=== PATIENT | female | born 1965 | race Caucasian/White ===

== ENCOUNTER 2020-04-29 08:15 | Outpatient (REF) | payer OTHER, SELFPAY ==
[2020-04-29 10:15] LABS: MANUAL DIFF FLAG NO
[2020-04-29 10:42] LABS: Basophils Percent Auto 0.5 % (0-2); Eosinophils Absolute Auto 0.1 X10*3/uL (0.0-0.4); Eosinophils Percent Auto 0.7 % (0-4); Hematocrit 41.8 % (37-47); Hemoglobin 13.4 g/dl (12.0-16.0); Imm Gran Abs Auto 0.03 X10*3/uL (0.00-0.03); Imm Gran Pct Auto 0.3 % (0.0-0.4); Lymphocytes Absolute Auto 1.8 X10*3/uL (1.2-4.9); Lymphocytes Percent Auto 20.4 % (20-40); Mean Corpuscular HGB Conc 32.1 g/dl (31.0-35.0); Mean Corpuscular Hemoglobin 28.1 pg (27.0-33.0); Mean Corpuscular Volume 87.6 fL (80-98); Mean Platelet Volume 9.8 fL (9.4-12.3); Monocytes Absolute Auto 0.4 X10*3/uL (0.1-1.2); Monocytes Percent Auto 4.6 % (2-11); Neutrophils Absolute Auto 6.3 X10*3/uL (2.0-8.3); Neutrophils Percent Auto 73.5 % (45-73); Platelet Count 442 X10*3/uL (160-400); Red Blood Count 4.77 X10*6/uL (4.20-5.50); Red Cell Distribution Width 13.2 % (11.0-16.0); White Blood Count 8.6 X10*3/uL (4.8-10.8)
[2020-04-29 11:06] LABS: Alanine Aminotransferase 13 U/L (0-31); Albumin Level 4.1 g/dL (3.5-5.0); Alkaline Phosphatase 61 U/L (39-117); Aspartate Amino Transferase 19 U/L (5-31); Bilirubin Direct < 0.2 mg/dL (0.0-0.5); Bilirubin Total 0.4 mg/dL (0.0-1.0); Total Protein 6.8 g/dL (6.5-8.0)
[2020-09-07 11:33] LABS: HCV Log PCR <1.18 NOT DETECTED; HepC Viral Load <15 NOT DETECTED
== END 2020-04-29 08:16 | disposition home or self-care (01) ==
LOC: HO.10HDL 08:15
PROVIDERS: PCP Internal Medicine; Visit Provider Internal Medicine
DX: B18.2 Chronic viral hepatitis C (principal)
CPT/HCPCS: 36415; 80076; 85025; 87522

== ENCOUNTER 2020-05-11 07:44 | Outpatient (REF) | payer OTHER, SELFPAY | END 2020-05-11 07:45 | disposition home or self-care (01) | LOC: HO.LAB 07:44 | PROVIDERS: Visit Provider Internal Medicine | DX: Z20.828 Contact with and (suspected) exposure to other viral communicable diseases (principal) | CPT/HCPCS: C9803; U0003 ==

== ENCOUNTER 2021-03-02 06:45 | Outpatient (REF) | payer OTHER, SELFPAY ==
[2021-03-02 11:30] LABS: Blood Urea Nitrogen 9 mg/dL (9-16); Estimated Glomerular Filt Rate > 60
== END 2021-03-02 06:46 | disposition home or self-care (01) ==
LOC: HO.LNP 06:45
PROVIDERS: Visit Provider Internal Medicine
DX: Z01.812 Encounter for preprocedural laboratory examination (principal)
CPT/HCPCS: 82565; 84520

== ENCOUNTER 2021-06-09 08:00 | Outpatient (REF) | payer OTHER, SELFPAY ==
[2021-06-09 10:18] LABS: MANUAL DIFF FLAG NO
[2021-06-09 10:22] LABS: Basophils Percent Auto 0.5 % (0-2); Eosinophils Absolute Auto 0.1 X10*3/uL (0.0-0.4); Eosinophils Percent Auto 1.6 % (0-4); Hematocrit 41.8 % (37.0-47.0); Hemoglobin 13.4 g/dl (12.0-16.0); Imm Gran Abs Auto 0.02 X10*3/uL (0.00-0.03); Imm Gran Pct Auto 0.3 % (0.0-0.4); Lymphocytes Absolute Auto 1.6 X10*3/uL (1.2-4.9); Lymphocytes Percent Auto 19.9 % (20-40); Mean Corpuscular HGB Conc 32.1 g/dl (31.0-35.0); Mean Corpuscular Hemoglobin 28.6 pg (27.0-33.0); Mean Corpuscular Volume 89.3 fL (80.0-98.0); Mean Platelet Volume 9.6 fL (9.4-12.3); Monocytes Absolute Auto 0.5 X10*3/uL (0.1-1.2); Monocytes Percent Auto 6.2 % (2-11); Neutrophils Absolute Auto 5.7 x10*3/uL (2.0-8.3); Neutrophils Percent Auto 71.5 % (45-73); Platelet Count 424 X10*3/uL (160-400); Red Blood Count 4.68 X10*6/uL (4.20-5.50); Red Cell Distribution Width 13.2 % (11.0-16.0); White Blood Count 7.9 X10*3/uL (4.8-10.8)
[2021-06-09 10:57] LABS: Alanine Aminotransferase 16 U/L (0-31); Alkaline Phosphatase 60 U/L (39-117); Aspartate Amino Transferase 17 U/L (5-31); Bilirubin Direct < 0.2 mg/dL (0.0-0.5); Bilirubin Total 0.4 mg/dL (0.0-1.0); Total Protein 6.9 g/dL (6.5-8.0)
[2021-06-12 14:46] LABS: Alpha Fetoprotein 2.4 ng/mL
[2021-06-14 15:17] LABS: FIB-ALT 12 U/L (6-29); FIB-Alpha-2-Macroglobulin 208 mg/dL (106-279); FIB-Apolipoprotein A1 192 mg/dL (101-198); FIB-GGT 12 U/L (3-70); FIB-Haptoglobin 118 mg/dL (43-212); FIB-Total Bilirubin 0.3 mg/dL (0.2-1.2); Liver Fibrosis Score 0.07; Liver Fibrosis Stage F0; Nec Inflam Act Grade A0; Nec Inflam Act Score 0.03
[2021-06-15 20:32] LABS: HCV Log PCR <1.18 NOT DETECTED Log IU/mL (NOT DETECTED); HepC Viral Load <15 NOT DETECTED IU/mL (NOT DETECTED)
== END 2021-06-09 08:01 | disposition home or self-care (01) ==
LOC: HO.10HDL 08:00
PROVIDERS: Visit Provider Internal Medicine
DX: B18.2 Chronic viral hepatitis C (principal)
CPT/HCPCS: 36415; 80076; 81596; 82105; 85025; 85610; 87522

== ENCOUNTER 2021-07-11 11:17 | Outpatient (REF) | payer OTHER, SELFPAY ==
[2021-07-11 11:21] LABS: MANUAL DIFF FLAG NO
[2021-07-11 11:26] LABS: Basophils Percent Auto 0.5 % (0-2); Eosinophils Absolute Auto 0.3 X10*3/uL (0.0-0.4); Eosinophils Percent Auto 3.2 % (0-4); Hematocrit 42.9 % (37.0-47.0); Hemoglobin 13.9 g/dl (12.0-16.0); Imm Gran Abs Auto 0.01 X10*3/uL (0.00-0.03); Imm Gran Pct Auto 0.1 % (0.0-0.4); Lymphocytes Absolute Auto 2.4 X10*3/uL (1.2-4.9); Mean Corpuscular HGB Conc 32.4 g/dl (31.0-35.0); Mean Corpuscular Hemoglobin 28.3 pg (27.0-33.0); Mean Corpuscular Volume 87.2 fL (80.0-98.0); Mean Platelet Volume 9.9 fL (9.4-12.3); Monocytes Absolute Auto 0.6 X10*3/uL (0.1-1.2); Monocytes Percent Auto 6.8 % (2-11); Neutrophils Absolute Auto 4.8 x10*3/uL (2.0-8.3); Neutrophils Percent Auto 59.4 % (45-73); Platelet Count 460 X10*3/uL (160-400); Red Blood Count 4.92 X10*6/uL (4.20-5.50); Red Cell Distribution Width 13.2 % (11.0-16.0)
[2021-07-11 11:34] LABS: Appearance Urine HAZY; Color Urine YELLOW; Glucose Urine UA NEG (NEG); Leukocyte Esterase Urine NEG (NEG); Nitrite Urine NEG (NEG); Specific Gravity - Urine 1.025 (1.005-1.025); Urine Blood NEG (NEG); Urine Ketones NEG (NEG); Urine Protein NEG (NEG-TRACE)
[2021-07-11 12:14] LABS: Alanine Aminotransferase 16 U/L (0-31); Alkaline Phosphatase 59 U/L (39-117); Anion Gap 12 (12-20); Aspartate Amino Transferase 18 U/L (5-31); Bilirubin Total 0.3 mg/dL (0.0-1.0); Blood Urea Nitrogen 9 mg/dL (9-16); Calcium 9.4 mg/dL (8.4-10.2); Carbon Dioxide 25 mmol/L (22-29); Chloride 110 mmol/L (96-108); Cholesterol 242 mg/dL; Estimated Glomerular Filt Rate > 60; Glucose Fasting 85 mg/dL (60-99); HDL Cholesterol 69 mg/dL; LDL Cholesterol Calculated 156 mg/dl; Potassium 4.4 mmol/L (3.3-5.1); Sodium 143 mmol/L (135-145); Total Protein 6.9 g/dL (6.5-8.0); Triglycerides 86 mg/dL
[2021-07-11 12:23] LABS: Vitamin D 25-OH Total 25.9 ng/mL (>30)
== END 2021-07-11 11:18 | disposition home or self-care (01) ==
LOC: HO.LNP 11:17
PROVIDERS: Visit Provider Internal Medicine
DX: Z00.00 Encounter for general adult medical examination without abnormal findings (principal); D72.820 Lymphocytosis (symptomatic); E55.9 Vitamin D deficiency, unspecified
CPT/HCPCS: 80053; 80061; 81003; 82306; 85025

== ENCOUNTER 2022-02-08 13:18 | Outpatient (REF) | payer OTHER, SELFPAY ==
--- NOTE | ~2022-02-08 | MM_ITS ---
EXAMINATION: BONE DENSITOMETRY CLINICAL INDICATION: Menopause. COMPARISON: Baseline BD dated 07/04/2018. TECHNIQUE: Using a [employer] DXA System (software version: 13.1) manufactured by [employer], dual-energy x-ray absorptiometry was performed of the lumbar spine and left hip. The images are of good technical quality. Summary results are attached. FINDINGS: AP SPINE L1-L4: Current: BMD 1.434 g/cm2, Z-score 3.2, T-score 2.1, normal, 2.6% decrease from baseline (<5% change is not significant). Baseline: BMD 1.473 g/cm2. LEFT FEMUR, NECK: Current: BMD 0.963 g/cm2, Z-score 0.6, T-score -0.5, normal. Baseline: BMD 0.964 g/cm2. LEFT FEMUR, TOTAL: Current: BMD 1.076 g/cm2, Z-score 1.4, T-score 0.5, normal, 2.0% decrease from baseline (<5% change is not significant). Baseline: BMD 1.098 g/cm2. IDENTIFIED RISK FACTORS: Menopause, low calcium intake. HISTORY OF FRACTURE: None listed. MEDICATIONS: Calcium supplements or multivitamin, vitamin D, ERT/SERMS. MM/XR DEXA axial skeleton IMPRESSION: 1. DIAGNOSIS: Normal bone density based on the lowest T-score value of -0.5 in the femoral neck applying World Health Organization criteria. 2. 10-YEAR FRACTURE RISK PREDICTION, FRAX: According to the guidelines, FRAX calculation should only be performed on patients in the osteopenia bone density category. Therefore, FRAX was not performed on this patient. 3. Treatment Recommendations: NOF guidelines recommend consideration for treatment in postmenopausal women and men age 50 and older presenting with the following: -A hip or vertebral (clinical or morphometric) fracture. -T-score less than or equal to -2.5 at the femoral neck or spine after appropriate evaluation to exclude secondary causes. -Low bone mass at the hip or spine and a 10-year fracture probability by FRAX of greater than or equal to 3% for hip fracture or greater than or equal to 20% for major osteoporotic fracture based on the [place] adapted WHO algorithm. 4. Other Recommendations: All treatment decisions require clinical judgment and consideration of individual patient factors, including patient preferences, comorbidities, previous drug use, risk factors not captured in the FRAX model (e.g. frailty, falls, vitamin D deficiency, increased bone turnover, interval significant decline in bone density) and possible under or overestimation of fracture risk by FRAX. FUTURE SCAN RECOMMENDATION: People with diagnosed cases of osteoporosis or at high risk for fracture should have regular bone mineral density tests. For patients eligible for Medicare, routine testing is allowed once every 2 years. The testing frequency can be increased to one year for patients who have rapidly progressing disease, those who are receiving or discontinuing medical therapy to restore bone mass, or have additional risk factors.
--- NOTE | ~2022-02-08 | MM_ITS ---
EXAMINATION: MM SCREENING DIGITAL BREAST TOMOSYNTHESIS, BILATERAL CLINICAL INFORMATION: Screening. Asymptomatic. The lifetime risk of breast cancer based on the Tyrer-Cuzick Model is 11.5%. COMPARISON: Mammography: December 08, 2018 and studies dating back to March 08, 2009 TECHNIQUE: Digital breast tomosynthesis is performed in both the craniocaudal and mediolateral oblique views along with computer-aided detection (CAD). Synthesized 2D images are generated from the tomosynthesis. FINDINGS: There are scattered areas of fibroglandular density (ACR BI-RADS breast composition Category b). There are no significant masses, abnormal calcifications, or other abnormalities. MM/MM tomosynthesis screening BI IMPRESSION: There are no significant changes from prior study. ASSESSMENT: BI-RADS 1: Negative RECOMMENDATION: Routine annual mammography screening. This patient's information was entered into a reminder system with a target due date for their next mammogram.
== END 2022-02-08 13:19 | disposition home or self-care (01) ==
LOC: HO.MAMMO 13:18
PROVIDERS: Visit Provider Internal Medicine
DX: Z12.31 Encounter for screening mammogram for malignant neoplasm of breast (principal); Z13.820 Encounter for screening for osteoporosis; Z78.0 Asymptomatic menopausal state
CPT/HCPCS: 77063; 77067; 77080

== ENCOUNTER 2023-02-06 06:35 | Day surgery (SDC) | payer OTHER, SELFPAY ==
--- NOTE | 2022-11-02 13:02 | HO.ANESPROP2 ---
HPI - Anesthesia Eval Consult details Narrative: 57yo F for Colonoscopy hx polysubstance abuse PMFSH Past Medical History Medical History (Updated 04/20/22 @ 10:59 by Tucker Knowles, OPAL) Depression History of alcohol abuse History of hepatitis C History of substance abuse Surgical History Surgical History (Updated 04/20/22 @ 10:59 by Tucker Knowles, POAL) History of bilateral carpal tunnel release History of colonoscopy History of eye surgery History of plastic surgery Social History Social History (Updated 04/20/22 @ 11:00 by Tucker Knowles, OPAL) Patient Tobacco Use Status: Never used Tobacco Meds Allergies Allergy/AdvReac Type Severity Reaction Status Date / Time No Known Allergies Allergy Unverified 03/24/20 14:45 [No Known Allergies*] Home Medications Medication Instructions Recorded Confirmed Last Taken Type aspirin 81 mg tablet,delayed 81 mg PO DAILY 04/20/22 04/20/22 Unknown History release ibuprofen 04/20/22 04/20/22 Unknown History methadone 12 mg PO DAILY 04/20/22 04/20/22 Unknown History multivitamin 1 tab PO DAILY 04/20/22 04/20/22 Unknown History Exam Exam Date and Time: November 02, 2022 1302 Assessment and Plan Assessment Anesthesia Assessment: Chart Reviewed
--- OUTSIDE RECORDS SUMMARY | 2023-02-06 06:38 | XMS_ITS ---
Author Name Servando Wesley Address [address] [place], [place] [id number] Organization Servando Wesley MD Address [address], [place] [id number] Care Team Providers Care Primary Care Provider Name Role Phone Servando Wesley Unavailable [phone] Servando Wesley Unavailable [phone] Yash Echevarria Unavailable Unavailable Kaye Flores Unavailable Unavailable PROBLEMS Type Condition ICD9-CM Code QDM94-GF Code Onset Dates Condition Status SNOMED Code Problem Current smoker F17.200 Active 00213446 Problem Tubular adenoma D36.9 Active 30386424 7 Problem History of alcohol abuse Z87.898 Active Problem History of hepatitis C Z86.19 Active 54726276633358 Problem Arthritis of knee M17.10 Active 519136 002 Problem Kidney stone N20.0 Active 14312361 Problem History of opioid abuse Z87.898 Active 857303907695584 Problem Diverticulitis K57.92 Active 32163497 Problem Dysthymia F34.1 Active 04286764 Problem Sciatica of right side M54.31 Active 27981226 Problem Vitamin D deficiency E55.9 Active 74242793 Problem Leukocytosis, unspecified type D72.829 Active 441118532 Problem Lymphocytosis D72.820 Active 11434350 ALLERGIES No Known Allergies ENCOUNTERS Encounter Location Date Diagnosis Servando Wesley MD [address] [place] [id number] Apr, Servando Wesley MD [address] [place] [address] [id number] Jan, Current smoker F17.200 ; History of opioid abuse Z87.898 ; History of hepatitis C Z86.19 ; Encounter for screening for other viral diseases Z11.59 and Asymptomatic menopausal state Z78.0 Servando Wesley MD [address] [place] [address] [id number] 14 Sep, 2021 Current smoker F17.200 Servando Wesley MD [address] [place] [address] [id number] 06 Jul, 2021 Adult general medical exam Z00.00 ; Lymphocytosis D72.820 ; Vitamin D deficiency E55.9 ; Current smoker F17.200 ; Dysthymia F34.1 ; Tubular adenoma D36.9 ; Depression screening Z13.31 and Encounter for screening for other viral diseases Z11.59 Servando Wesley MD [address] [place] [address] [id number] Jul, Lymphocytosis D72.820 ; Vitamin D deficiency E55.9 ; Blood tests for routine general physical examination Z00.00 and Leukocytosis, unspecified type D72.829 Servando Wesley MD [address] [place] [address] [id number] Jun, Encounter for immunization Z23 Servando Wesley MD [address] [place] [address] [id number] 14 Apr, 2021 Servando Wesley MD [address] [place] [address] [id number] Apr, Servando Wesley MD [address] [place] [address] [id number] Feb, Blood tests prior to treatment or procedure Z01.812 Servando Wesley MD [address] [place] [address] [id number] Feb, Diverticulitis K57.92 and Kidney stone N20.0 Servando Wesley MD [address] [id number] Feb, Servando Wesley MD [address] [id number] Dec, Current smoker F17.200 and Encounter for screening for other viral diseases Z11.59 Servando Wesley MD [address] [id number] Jun, Annual physical exam Z00.00 ; Dysthymia F34.1 ; History of hepatitis C Z86.19 ; Current smoker F17.200 ; Tubular adenoma D36.9 ; Arthritis of knee M17.10 ; Lymphocytosis D72.820 ; Sciatica of right side M54.31 ; History of opioid abuse Z87.898 ; History of alcohol abuse Z87.898 ; Encounter for screening for other viral diseases Z11.59 ; Depression screening Z13.31 ; Leukocytosis, unspecified type D72.829 and Vitamin D deficiency E55.9 Servando Wesley MD [address] [place] [address] [id number] May, Blood tests for routine general physical examination Z00.00 ; History of hepatitis C Z86.19 ; Lymphocytosis D72.820 and Menopause Z78.0 Servando Wesley MD [address] [id number] May, Servando Wesley MD [address] [place] [address] [id number] Apr, Dysthymia F34.1 and Encounter for screening for other viral diseases Z11.59 Servando Wesley MD [address] [place] [address] [id number] Apr, Encounter for immunization Z23 ; Blood tests for routine general physical examination Z00.00 ; Current smoker F17.200 ; Dysthymia F34.1 and Lymphocytosis D72.820 Servando Wesley MD [address] [place] [address] [id number] Oct, Shortness of breath R06.02 and Encounter for screening for other viral diseases Z11.59 Servando Wesley MD [address] [place] [address] [id number] Sep, Servando Wesley MD [address] [id number] Aug, Lymphocytosis D72.820 Servando Wesley MD [address] [place] [address] [id number] Jul, Lymphocytosis D72.820 Servando Wesley MD [address] [place] [address] [id number] Jun, Servando Wesley MD [address] [place] [address] [id number] May, Annual physical exam Z00.00 ; Arthritis of knee M17.10 ; History of hepatitis C Z86.19 ; Current smoker F17.200 ; Depression screening Z13.31 and Tubular adenoma D36.9 Servando Wesley MD [address] [place] [address] [id number] May, Servando Wesley MD [address] [place] [address] [id number] May, Blood tests for routine general physical examination Z00.00 ; Current smoker F17.200 ; Dysthymia F34.1 ; Infectious disease exposure Z20.9 and Encounter for immunization Z23 Servando Wesley MD [address] [place] [address] [id number] Sep, Dysthymia F34.1 ; BMI 29.0-29.9,adult Z68.29 ; History of hepatitis C Z86.19 ; History of alcohol abuse Z87.898 ; History of opioid abuse Z87.898 ; Current smoker F17.200 and Encounter for immunization Z23 Servando Wesley MD [address] [place] [address] [id number] Jul, Dysthymia F34.1 Servando Wesley MD [address] [place] [address] [id number] Jun, Annual physical exam Z00.00 ; Current smoker F17.200 ; Osteoporosis screening Z13.820 ; Breast cancer screening Z12.31 ; Depression screening Z13.31 ; School physical exam Z02.0 ; History of alcohol abuse Z87.898 ; History of opioid abuse Z87.898 ; History of smoking 30 or more pack years Z87.891 ; Dysthymia F34.1 and Colon cancer screening Z12.11 Servando Wesley MD [address] [place] [address] [id number] Apr, Current smoker F17.200 ; BMI 28.0-28.9,adult Z68.28 ; Screening for colon cancer Z12.11 ; Encounter for immunization Z23 ; Blood tests for routine general physical examination Z00.00 and Osteoporosis screening Z13.820 IMMUNIZATIONS Vaccine Route Administration Date Status SARS-COV-2 Moderna Unknown Jun 23, 2021 Administe red Fluarix Quadrivalent IM Intramuscular Jun 09, 2021 Adm inistered SARS-COV-2 Moderna Unknown Aug 26, 2020 Administe red SARS-COV-2 Moderna Unknown Jul 29, 2020 Administe red Fluarix Quadrivalent IM Intramuscular Apr 08, 2020 Adm inistered Fluarix Quadrivalent IM Intramuscular May 19, 2019 Adm inistered PPSV23 (Pnemovax) IM Intramuscular September 23, 2018 Admi nistered Fluarix Quadrivalent IM Intramuscular Apr 22, 2018 Adm inistered SOCIAL HISTORY Qualifiers Date Current Smoker REASON FOR REFERRAL FUNCTIONAL STATUS PLAN OF CARE Activity Details VITAL SIGNS Height 61.5 in 2022-01-15 Height 61.5 in 2021-07-13 Height 61.5 in 2021-02-28 Height 61.5 in 2020-12-26 Height 61.5 in 2020-06-27 Height 61.5 in 2020-04-29 Height 61.5 in 2019-10-27 Height 61.5 in 2019-05-28 Height 61.5 in 2018-09-23 Height 61.5 in 2018-04-22 Weight 142 lbs 2022-01-15 Weight 139 lbs 2021-07-13 Weight 135 lbs 2021-02-28 Weight 135 lbs 2020-12-26 Weight 135 lbs 2020-06-27 Weight 138 lbs 2020-04-29 Weight 152 lbs 2019-10-27 Weight 152 lbs 2019-05-28 Weight 158 lbs 2018-09-23 Weight 153 lbs 2018-04-22 BMI 26.39 kg/m2 2022-01-15 BMI 25.84 kg/m2 2021-07-13 BMI 25.09 kg/m2 2021-02-28 BMI 25.09 kg/m2 2020-12-26 BMI 25.09 kg/m2 2020-06-27 BMI 25.65 kg/m2 2020-04-29 BMI 28.25 kg/m2 2019-10-27 BMI 28.25 kg/m2 2019-05-28 BMI 29.37 kg/m2 2018-09-23 BMI 28.44 kg/m2 2018-04-22 Temperature 98.3 degrees Fahrenheit Temperature 97.7 degrees Fahrenheit Temperature 97.4 degrees Fahrenheit Blood pressure systolic 130 mm Hg Blood pressure diastolic 58 mm Hg 2022-01 MEDICATIONS Medication Instructions Dosage Frequency Start Date End Date Duration Status Methadone HCl 5 MG/5ML Orally 27mg orally Once a day 24h Active Imvexxy 10 MCG Vaginal Two times a Week 1 _insert 30 day(s) Active PROCEDURES Procedure Date Ordered Result Body Site VENIPUNCT, ROUTINE* Sep 01, 2019 VENIPUNCT, ROUTINE* May 28, 2019 IMMUNIZATION ADMIN Jun 09, 2021 Fluarix Quadrivalent Apr 08, 2020 PNEUMOCOCCAL VACCINE September 23, 2018 VENIPUNCT, ROUTINE* May 19, 2019 -ELECTROCARDIOGRAM, COMPLETE Jun 20, 2018 Fluarix Quadrivalent May 19, 2019 Fluarix Quadrivalent Apr 22, 2018 IMMUNIZATION ADMIN May 19, 2019 Fluarix Quadrivalent Jun 09, 2021 VENIPUNCT, ROUTINE* Jul 11, 2021 IMMUNIZATION ADMIN Apr 22, 2018 VENIPUNCT, ROUTINE* Mar 02, 2021 IMMUNIZATION ADMIN September 23, 2018 VENIPUNCT, ROUTINE* Apr 22, 2018 VENIPUNCT, ROUTINE* May 27, 2020 IMMUNIZATION ADMIN Apr 08, 2020 RESULTS Name Result Date Reference Range MM tomosynthesis screening BI 2022-02-08 XR DEXA axial skeleton 2022-02-08 PAP SMEAR (THIN PREP) 2021-10-24 PAP SMEAR (THIN PREP) Complete Blood Count Auto Diff 2021-07-11 White Blood Count 8.0 4.8-10.8 Red Blood Count 4.92 4.20-5.50 Hemoglobin 13.9 12.0-16.0 Hematocrit 42.9 37.0-47.0 Mean Corpuscular Volume 87.2 80.0 -98.0 Mean Corpuscular Hemoglobin 28.3 27.0-33.0 Mean Corpuscular HGB Conc 32.4 31 .0-35.0 Red Cell Distribution Width 13.2 11.0-16.0 Platelet Count 460 160-400 Mean Platelet Volume 9.9 9.4-12. 3 Neutrophils Percent Auto 59.4 45- 73 Imm Gran Pct Auto 0.1 0.0-0.4 Lymphocytes Percent Auto 30.0 20- 40 Monocytes Percent Auto 6.8 2-11 Eosinophils Percent Auto 3.2 0-4 Basophils Percent Auto 0.5 0-2 NRBC Pct Auto 0.0 0.0-0.2 Neutrophils Absolute Auto 4.8 2. 0-8.3 Imm Gran Abs Auto 0.01 0.00-0.03 Lymphocytes Absolute Auto 2.4 1. 2-4.9 Monocytes Absolute Auto 0.6 0.1- 1.2 Eosinophils Absolute Auto 0.3 0. 0-0.4 Basophils Absolute Auto 0.0 0.0- 0.2 NRBC Abs Auto 0.000 0.0-0.012 Urinalysis 2021-07-11 Color Urine YELLOW Appearance Urine HAZY PH 6.0 5.0-8.0 Glucose Urine UA NEG NEG Urine Blood NEG NEG Specific [place] - Urine 1.025 1.0 05-1.025 Urine Protein NEG NEG-TRACE Urine Ketones NEG NEG Nitrite Urine NEG NEG Leukocyte Esterase Urine NEG NEG Comprehensive [place]. Panel Fast 2021-07-11 Sodium 143 135-145 Potassium 4.4 3.3-5.1 Chloride 110 96-108 Carbon Dioxide 25 22-29 Anion Gap 12 12-20 Blood Urea Nitrogen 9 9-16 Creatinine 0.66 0.5-1.4 Estimated Glomerular Filt Rate >60 Glucose Fasting 85 60-99 Calcium 9.4 8.4-10.2 Bilirubin Total 0.3 0.0-1.0 Aspartate Amino Transferase 18 5-31 Alanine Aminotransferase 16 0-3 1 Total Protein 6.9 6.5-8.0 Albumin Level 4.0 3.5-5.0 Alkaline Phosphatase 59 39-117 Lipid Panel 2021-07-11 Triglycerides 86 Cholesterol 242 LDL Cholesterol Calculated 156 HDL Cholesterol 69 Vitamin D 25-OH Total 2021-07-11 Vitamin D 25-OH Total 25.9 >30 Blood Urea Nitrogen 2021-03-02 Blood Urea Nitrogen 9 9-16 Creatinine 2021-03-02 Creatinine 0.69 0.5-1.4 Estimated Glomerular Filt Rate >60 LIPID PANEL 2020-05-27 CHOLESTEROL, TOTAL 247 <200 HDL CHOLESTEROL 73 >OR = 50 TRIGLYCERIDES 52 <150 LDL-CHOLESTEROL 160 CHOL/HDLC RATIO 3.4 <5.0 NON HDL CHOLESTEROL 174 <130 COMPREHENSIVE METABOLIC PANEL 2020-05-27 GLUCOSE 92 65-99 UREA NITROGEN (BUN) 11 7-25 CREATININE 0.67 0.50-1.05 eGFR NON-AFR. LATVIAN 98 >OR = 60 eGFR 114 >OR = 60 BUN/CREATININE RATIO NOT APPLICABLE 6-22 SODIUM 139 135-146 POTASSIUM 4.0 3.5-5.3 CHLORIDE 105 98-110 CARBON DIOXIDE 27 20-32 CALCIUM 9.6 8.6-10.4 PROTEIN, TOTAL 6.7 6.1-8.1 ALBUMIN 4.1 3.6-5.1 GLOBULIN 2.6 1.9-3.7 ALBUMIN/GLOBULIN RATIO 1.6 1.0-2 .5 BILIRUBIN, TOTAL 0.5 0.2-1.2 ALKALINE PHOSPHATASE 62 37-153 AST 14 10-35 ALT 10 6-29 CBC (INCLUDES DIFF/PLT) 2020-05-27 WHITE BLOOD CELL COUNT 11.7 3.8-1 0.8 RED BLOOD CELL COUNT 4.93 3.80-5. 10 HEMOGLOBIN 14.0 11.7-15.5 HEMATOCRIT 43.0 35.0-45.0 MCV 87.2 80.0-100.0 MCH 28.4 27.0-33.0 MCHC 32.6 32.0-36.0 RDW 12.8 11.0-15.0 PLATELET COUNT 472 140-400 MPV 9.6 7.5-12.5 ABSOLUTE NEUTROPHILS 9079 1500-78 00 ABSOLUTE LYMPHOCYTES 1849 850-390 0 ABSOLUTE MONOCYTES 608 200-950 ABSOLUTE EOSINOPHILS 105 15-500 ABSOLUTE BASOPHILS 59 0-200 NEUTROPHILS 77.6 LYMPHOCYTES 15.8 MONOCYTES 5.2 EOSINOPHILS 0.9 BASOPHILS 0.5 VITAMIN D, 25-HYDROXY, LC/MS/MS 2020-05-09 0 VITAMIN D,25-OH,TOTAL,IA 24 30- 100 URINALYSIS, COMPLETE 2020-05-27 COLOR YELLOW YELLOW APPEARANCE CLEAR CLEAR SPECIFIC GRAVITY 1.014 1.001-1.035 PH 5.5 5.0-8.0 GLUCOSE NEGATIVE NEGATIVE BILIRUBIN NEGATIVE NEGATIVE KETONES NEGATIVE NEGATIVE OCCULT BLOOD NEGATIVE NEGATIVE PROTEIN NEGATIVE NEGATIVE NITRITE NEGATIVE NEGATIVE LEUKOCYTE ESTERASE TRACE NEGATIVE WBC 0-5 < OR = 5 RBC NONE SEEN < OR = 2 SQUAMOUS EPITHELIAL CELLS 0-5 < OR = 5 BACTERIA NONE SEEN NONE SEEN HYALINE CAST NONE SEEN NONE SEEN Hep C Viral Load 2020-04-29 HepC Viral Load <15 NOT DETECTED HCV Log PCR <1.18 NOT DETECTED SARS COV2 RNA RT PCR 2020-03-02 SARS COV2 RNA RT PCR Not Detected Not Det ected CBC w DIFF 2019-09-01 WBC 5.9 4.8-10.8 ABSOLUTE NEUTROPHIL COUNT 3.1 2. 2-7.9 RBC 4.58 4.20-5.50 HEMOGLOBIN 13.5 12.0-16.0 HEMATOCRIT 40.3 37-47 MCV 88.0 80-98 MCH 29.4 27.0-33.0 MCHC 33.4 31.0-35.0 PLATELET COUNT 389 160-400 RDW 11.9 11.0-16.0 NEUTROPHILS 52.8 45-73 LYMPHOCYTES 36.1 20-40 MONOCYTES 7.4 2-11 EOSINOPHILS 2.4 0-4 BASOPHILS 1.2 0-2 BUN 2019-07-29 BUN 14 9-16 CREATININE 2019-07-29 CREATININE 0.72 0.5-1.4 ESTIMATED GFR >60 LIVER PROFILE 2019-07-29 PROTEIN, TOTAL 7.3 6.5-8.0 ALBUMIN 4.4 3.5-5.0 BILIRUBIN, TOTAL 0.7 0.0-1.0 BILIRUBIN, DIRECT 0.3 0.0-0.5 ALK. PHOS. 70 39-117 GOT 34 5-31 GPT 39 0-31 CBC w DIFF 2019-07-29 WBC 6.6 4.8-10.8 ABSOLUTE NEUTROPHIL COUNT 2.9 2. 2-7.9 RBC 4.77 4.20-5.50 HEMOGLOBIN 14.0 12.0-16.0 HEMATOCRIT 39.7 37-47 MCV 83.2 80-98 MCH 29.4 27.0-33.0 MCHC 35.3 31.0-35.0 PLATELET COUNT 457 160-400 RDW 11.9 11.0-16.0 NEUTROPHILS 44.3 45-73 LYMPHOCYTES 46.3 20-40 MONOCYTES 6.5 2-11 EOSINOPHILS 1.9 0-4 BASOPHILS 0.9 0-2 PROTHROMBIN TIME (PT, INR) 2019-07-29 INTERNATIONAL NORM. RATIO 1.0 SE E NOTE PROTHROMBIN TIME 11.7 10.8-13.0 HEPATITIS C VIRAL LOAD 2019-07-29 HEP C VIRAL LOAD [id number] () HCV LOG PCR 6.14 () MRI KNEE RT NO CONTRAST 2019-06-17 CHEST 2 VIEWS 2019-06-09 KNEE RIGHT RT 2019-06-09 XR KNEE BILATERAL STANDING 2019-06-09 URINALYSIS + MICROSCOPIC 2019-05-28 COLOR YELLOW APPEARANCE,(UA) CLEAR SPECIFIC GRAVITY <= 1.005 1.005-1.025 LEUKOCYTES 1+ NEG NITRITE NEG NEG PROTEIN,QUALITATIVE NEG NEG - TR RASHAAD PH 6.0 5.0-8.0 URINE BLOOD NEG NEG KETONES NEG NEG GLUCOSE NEG NEG MICROSCOPIC WBC 10-14 0-4 MICROSCOPIC RBC 0-2 0 EPITHELIAL CELLS 1+ BACTERIA TRACE HEPATITIS C VIRAL LOAD 2019-05-28 HEP C VIRAL LOAD [id number] () HCV LOG PCR 6.29 () LIPOPROTEIN FRACTIONATION (LIPID PANEL) 2 CHOLESTEROL 232 TRIGLYCERIDE 59 HDL 90 LDL CALCULATED 131 PROFILE, FASTING 2019-05-19 NA 139 135-145 K 4.3 3.3-5.1 CL 108 96-108 CO2 23 22-29 ANION GAP 12 12-20 FASTING BLOOD SUGAR 103 60-99 BUN 17 9-16 CREATININE 0.72 0.5-1.4 ESTIMATED GFR >60 PROTEIN, TOTAL 6.8 6.5-8.0 ALBUMIN 4.0 3.5-5.0 BILIRUBIN, TOTAL 0.5 0.0-1.0 CALCIUM 9.3 8.4-10.2 ALK. PHOS. 67 39-117 GOT 31 5-31 GPT 39 0-31 CBC w DIFF 2019-05-19 WBC 5.6 4.8-10.8 ABSOLUTE NEUTROPHIL COUNT 3.1 2. 2-7.9 RBC 4.82 4.20-5.50 HEMOGLOBIN 13.8 12.0-16.0 HEMATOCRIT 41.8 37-47 MCV 86.8 80-98 MCH 28.7 27.0-33.0 MCHC 33.1 31.0-35.0 PLATELET COUNT 423 160-400 RDW 11.9 11.0-16.0 NEUTROPHILS 55.2 45-73 LYMPHOCYTES 35.7 20-40 MONOCYTES 6.0 2-11 EOSINOPHILS 2.4 0-4 BASOPHILS 0.7 0-2 HEPATITIS C ANTIBODY 2019-05-19 HEPATITIS C ANTIBODY REACTIVE NONREAC TIVE cologuard GI BIOPSY 2019-04-27 G.I. BIOPSY MAMMOGRAM DIGITAL BILATERAL SCREEN 12-09 HCV RNA NS5A DRUG RESISTANCE 2018-09-23 HCV NS5a SUBTYPE 1a () DACLATASVIR RESISTANCE NOT PREDICTED () LEDIPASVIR RESISTANCE NOT PREDICTED () OMBITASVIR RESISTANCE NOT PREDICTED () ELBASVIR RESISTANCE NOT PREDICTED () US ABD 2018-09-10 Bone Density URINALYSIS + MICROSCOPIC 2018-04-22 COLOR YELLOW APPEARANCE,(UA) CLEAR SPECIFIC GRAVITY 1.015 1.005-1.025 LEUKOCYTES TRACE NEG NITRITE NEG NEG PROTEIN,QUALITATIVE NEG NEG - TR RASHAAD PH 6.0 5.0-8.0 URINE BLOOD NEG NEG KETONES NEG NEG GLUCOSE NEG NEG MICROSCOPIC WBC 1-4 0-4 MICROSCOPIC RBC 0-2 0 EPITHELIAL CELLS 2+ BACTERIA TRACE LIPOPROTEIN FRACTIONATION (LIPID PANEL) 2 CHOLESTEROL 237 TRIGLYCERIDE 51 HDL 83 LDL CALCULATED 144 PROFILE, FASTING 2018-04-22 NA 138 135-145 K 4.7 3.3-5.1 CL 104 96-108 CO2 29 22-29 ANION GAP 10 12-20 FASTING BLOOD SUGAR 92 60-99 BUN 19 9-16 CREATININE 0.69 0.5-1.4 ESTIMATED GFR >60 PROTEIN, TOTAL 6.8 6.5-8.0 ALBUMIN 4.1 3.5-5.0 BILIRUBIN, TOTAL 0.5 0.0-1.0 CALCIUM 9.5 8.4-10.2 ALK. PHOS. 65 39-117 GOT 26 5-31 GPT 35 0-31 CBC w DIFF 2018-04-22 WBC 6.4 4.8-10.8 ABSOLUTE NEUTROPHIL COUNT 2.9 2. 2-7.9 RBC 4.48 4.20-5.50 HEMOGLOBIN 13.1 12.0-16.0 HEMATOCRIT 39.2 37-47 MCV 87.6 80-98 MCH 29.2 27.0-33.0 MCHC 33.4 31.0-35.0 PLATELET COUNT 396 160-400 RDW 11.8 11.0-16.0 NEUTROPHILS 46.3 45-73 LYMPHOCYTES 42.1 20-40 MONOCYTES 8.2 2-11 EOSINOPHILS 2.2 0-4 BASOPHILS 1.3 0-2 BONE DENSITY DEXA 2018-07-04 REASON FOR VISIT ANNUAL EXAM, Covid #1 #2 #3 documented, FASTING LABS, FYI colonoscopy, 6 MO F/U, Covid #1 #2 #3 andflu vac documented, Due for Bone Density needs order, Due for Mammo needs order, No Covid symptoms,med , ANNUAL EXAM, Covid #1 #2 #3 documented Flu vac documented, No Covid symptoms, has [employer], looking for patch to quit smoking, C/O lower right quad burning x 1 month, FASTING LABS, flu injection, CTABD PELVIS, BUN Creatinine, abd pain x 2 days llq, No Covid symptoms Covid #1 and #2 documented, Video [phone], patient rescheduled appt, 6 MO F/U SMOKING, Do Covid Screen No Covid symptoms Covid #1 and #2 documented, CBC W/ DIFF, ANNUAL EXAM, REVIEW LABS, Do Covid Screen-no covid screening no covid symptoms, Depression screening; smoking and alcohol status, Communication Screening, CK if plans to have T-DAP-will go to pharmacy, PAP-will make appt with [employer]KE OPERATOR, video [phone], FASTING LABS, Letter request, TALK ABOUT MEDS bupropion stopped it 2 weeks, Do COVID Screening, CK if plans tohave T-DAP, video [phone], FLU, 6 MO F/U for Hepatitis C, Do COVID Screening, SOB x 1 day no temp no cough no sore throat a little fatigue, Facetime [phone], Bloodwork, Repeat CBC, Needs to repeat cbc, RESULTS HEP C VIRAL LOAD, Annual exam and review labs - had hep c viral load on Saturday, Depresssion screening, Ekg sign form PT DECLINED WILL DO NEXT YEAR, Get UA - unable to void at lab visit, CK if plans to have T-DAP PT WILL TRY, Due for Pap PT ANNUAL EXAM LAST YEAR IN [place] , Does pt plan on getting Chest Xr Done - ordered because she's a smoker, WILL CALL WITH NAME , Hep C viral load, Annual fasting labs, do Hep C - exposure to infectious disease, give flu shot, 3 mo f/u for Dysthymia, BMI reporting, Give pneumo, needs chest xray order from last visit, Wellbutrin 150, Annual Exam and review labs from April, Depression screening; smoking and alcohol status, EKG - sign form, Discuss Smoking Cessation, Due for T-Dap at Pharmacy PT AWARE, Due for bone density, mammo, pap and colonoscopy - Does pt have a toll transmission worker? PT DOES NOT, WILL GET ONE AT [facility], PT IS ALREADY SCHED WITH DR ECHEVARRIA ON 08/28/18 @ 11:00AM, Needs refill on Wellbutrin, Had Mammo done in October at [facility] at [facility], NPT, Give flu shot, Ck if had colonoscopy, mammo, bone density and pap (does she have a toll transmission worker), BMI reporting print out given to the patient, needs appt Colonoscopy and Bone Density order, mammo [facility], Pap will make own appt,, labs drawn Insurance Providers Health Insurance Type Health Plan Insurance Address Health Plan Insurance Phone Health Plan Insurance Name Health Plan Coverage Dates Member ID Patient Relationship to Subscriber Patient Address Patient Phone Patient Name Patient Date of Subscriber ID Subscriber Name Subscriber Date of Group No [facility] [address] [facility] [address] [facility] [id number] [facility] self Silva fink [id number] [place] [address] [address] [facility] [phone] [id number] [employer] self Silva fink [id number] [employer] [place] [address] [place] [address] [employer] [place] self Silva fink [id number]
--- OUTSIDE RECORDS SUMMARY | 2023-02-06 06:38 | XMS_ITS ---
Author Name Yash Wilson Address [address] [place] [address] Organization [facility] Address [address] [place] [address] Care Team Providers Care Vehicle Return Associate Name Role Phone Yash Wilson Unavailable [phone] PROBLEMS Type Condition ICD9-CM Code XKC89-EP Code Onset Dates Condition Status SNOMED Code Problem History of hepatitis C Z86.19 Active 08414240619351 Problem Personal history of colonic polyps Z86.010 Active Problem Encounter for screening for malignant neoplasm of colon Z12.11 Active 561692442 Problem Chronic hepatitis C without hepatic coma B18.2 Active 470263594 Problem History of adenomatous polyp of colon Z86.010 Active 847531678 Problem Chronic hepatitis K73.9 Active [id number] ALLERGIES No Known Allergies ENCOUNTERS Encounter Location Date Diagnosis [facility] [address] [place] [id number] Feb, [facility] [address] [place] [phone] Jan, [facility] [address] [place] [phone] Jan, [facility] [address] [place] [phone] November, [facility] [address] [place] [phone] Sep, [facility] [address] [place] [phone] 23 Apr, 2022 [facility] [address] [place] 17 Apr, 2022 [facility] [address] [place] 14 Apr, 2022 [facility] [address] [place] [address] 15 Dec, 2021 Encounter for screening for malignant neoplasm of colon Z12.11 ; History of hepatitis C Z86.19 and Personal history of colonic polyps Z86.010 [facility] [address] [place] Jun, [facility] [address] [facility] [place] Jun, Chronic hepatitis C without hepatic coma B18.2 ; History of adenomatous polyp of colon Z86.010 and Encounter for screening for malignant neoplasm of colon Z12.11 [facility] [address] [facility] [place] [address] Feb, [facility] [address] [facility] [place] Dec, [facility] [address] [facility] [place] Oct, [facility] [address] [facility] [place] Apr, Chronic hepatitis C without hepatic coma B18.2 [facility] [address] [place] [address] [place] November, Chronic hepatitis C without hepatic coma B18.2 [facility] [address] [facility] [place] [address] Sep, Chronic hepatitis C without hepatic coma B18.2 [facility] [address] [facility] [place] Aug, [facility] [address] [facility] [place] Jul, Chronic hepatitis C without hepatic coma B18.2 [facility] [address] [facility] [place] [address] Jul, [facility] [address] [place] [address] Jul, Chronic hepatitis C without hepatic coma B18.2 and History of adenomatous polyp of colon Z86.010 [facility] [address] [place] [address] Apr, [facility] [address] [facility] [place] [phone] Apr, Colon cancer screening Z12.11 ; Colon polyp K63.5 ; Diverticulosis of colon K57.30 and Internal hemorrhoid K64.8 [facility] [address] [facility] [place] [address] Apr, [facility] [address] [facility] [place] [address] Dec, [facility] [address] [facility] [place] [address] Dec, [facility] [address] [facility] [place] [address] Dec, [facility] [address] [facility] [place] [address] Aug, [facility] [address] [place] [phone] 14 Aug, 2018 Chronic hepatitis C without hepatic coma B18.2 and Encounter for screening for malignant neoplasm of colon Z12.11 IMMUNIZATIONS Vaccine Route Administration Date Status Influenza Unknown May 30, 2021 Administered Influenza Unknown Apr 13, 2020 Administered Influenza Unknown Apr 01, 2019 Administered Influenza Unknown Jun 07, 2018 Administered SOCIAL HISTORY Qualifiers Date Never Smoker REASON FOR REFERRAL FUNCTIONAL STATUS PLAN OF CARE Activity Details VITAL SIGNS Weight 140 lbs 2021-12-20 Weight 141 lbs 2021-06-07 Weight 139 lbs 2020-04-27 Weight 152 lbs 2019-07-29 Weight 155 lbs 2018-08-21 Height 61 in 2021-12-20 Height 61 in 2021-06-07 Height 61 in 2020-04-27 Height 61 in 2019-07-29 Height 61 in 2018-08-21 BMI 26.45 kg/m2 2021-12-20 BMI 26.64 kg/m2 2021-06-07 BMI 26.26 kg/m2 2020-04-27 BMI 28.72 kg/m2 2019-07-29 BMI 29.28 kg/m2 2018-08-21 Heart Rate 68 /min 2018-08-21 Temperature 96.9 degrees Fahrenheit Temperature 96.9 degrees Fahrenheit Temperature 97.1 degrees Fahrenheit Blood pressure systolic 000 mm Hg Blood pressure diastolic 00 mm Hg 2021-12 MEDICATIONS Medication Instructions Dosage Frequency Start Date End Date Duration Status Ibuprofen Active Aspir-81 Active Methadone HCl 10 MG Orally Once a day 12 mg 24h Active Multivitamin Adults - Orally once a day as directed 24h Active PROCEDURES Procedure Date Ordered Result Body Site COLORECTAL CA SCREEN DOC REV Apr 27, 2020 BP SCR PRFRM RCMDD DEFIND SCR INTVL Apr 27, 2020 COLORECTAL CA SCREEN DOC REV Aug 21, 2018 COLORECTAL CA SCREEN DOC REV Jul 29, 2019 TOBACCO NON-USER December 20, 2021 COLORECTAL CA SCREEN DOC REV December 20, 2021 TOBACCO NON-USER Jun 07, 2021 COLORECTAL CA SCREEN DOC REV Jun 07, 2021 DOC MEDS VERIFIED W/PT OR RE Jul 29, 2019 BP SCR PRFRM RCMDD DEFIND SCR INTVL Jul 29, 2019 LESION REMOVAL COLONOSCOPY Apr 27, 2019 DOC MEDS VERIFIED W/PT OR RE Aug 21, 2018 BP SCR PRFRM RCMDD DEFIND SCR INTVL Aug 21, 2018 DOC MEDS VERIFIED W/PT OR RE December 20, 2021 BP SCR NOT PRFRM REC REASON NOS December 20, 2021 DOC MEDS VERIFIED W/PT OR RE Jun 07, 2021 BP SCR NOT PRFRM REC REASON NOS Jun 07, 2021 TOBACCO NON-USER Jul 29, 2019 TOBACCO NON-USER Aug 21, 2018 PT TOBACCO SCREEN RCVD TLK Apr 27, 2020 SUPPLIES, CLINICAL STAFF JORDIN Ulloa DURING INFECTIOUS DISEASE PANDEMIC Apr 27, 2020 DOC MEDS VERIFIED W/PT OR RE Apr 27, 2020 Separate E/M Apr 27, 2020 RESULTS Name Result Date Reference Range Complete Blood Count Auto Diff 2021-06-09 White Blood Count 7.9 4.8-10.8 Red Blood Count 4.68 4.20-5.50 Hemoglobin 13.4 12.0-16.0 Hematocrit 41.8 37.0-47.0 Mean Corpuscular Volume 89.3 80.0 -98.0 Mean Corpuscular Hemoglobin 28.6 27.0-33.0 Mean Corpuscular HGB Conc 32.1 31 .0-35.0 Red Cell Distribution Width 13.2 11.0-16.0 Platelet Count 424 160-400 Mean Platelet Volume 9.6 9.4-12. 3 Neutrophils Percent Auto 71.5 45- 73 Imm Gran Pct Auto 0.3 0.0-0.4 Lymphocytes Percent Auto 19.9 20- 40 Monocytes Percent Auto 6.2 2-11 Eosinophils Percent Auto 1.6 0-4 Basophils Percent Auto 0.5 0-2 NRBC Pct Auto 0.0 0.0-0.2 Neutrophils Absolute Auto 5.7 2. 0-8.3 Imm Gran Abs Auto 0.02 0.00-0.03 Lymphocytes Absolute Auto 1.6 1. 2-4.9 Monocytes Absolute Auto 0.5 0.1- 1.2 Eosinophils Absolute Auto 0.1 0. 0-0.4 Basophils Absolute Auto 0.0 0.0- 0.2 NRBC Abs Auto 0.000 0.0-0.012 Prothrombin Time INR 2021-06-09 Prothrombin Time 11.0 9.9-13.0 INTERNATIONAL NORM RATIO 1.0 0.9 -1.1 Liver Panel 2021-06-09 Bilirubin Total 0.4 0.0-1.0 Bilirubin Direct < 0.2 0.0-0.5 Aspartate Amino Transferase 17 5-31 Alanine Aminotransferase 16 0-3 1 Total Protein 6.9 6.5-8.0 Albumin Level 4.0 3.5-5.0 Alkaline Phosphatase 60 39-117 Alpha Fetoprotein 2021-06-09 Alpha Fetoprotein 2.4 Liver Fibrosis Pnl 2021-06-09 Liver Fibrosis Score 0.07 Liver Fibrosis Stage F0 Liver Fibrosis Interpretation SEE NOTE Nec Inflam Act Score 0.03 Nec Inflam Act Grade A0 Nec Inflam Act Interpretation SEE NOTE RXT-Orydc-7-Macroglobulin 208 10 6-279 FIB-Haptoglobin 118 43-212 FIB-Apolipoprotein A1 192 101-19 8 FIB-Total Bilirubin 0.3 0.2-1.2 FIB-GGT 12 3-70 FIB-ALT 12 6-29 Reference ID [id number] Footnote SEE NOTE Hep C Viral Load 2021-06-09 HepC Viral Load <15 NOT DETECTED NOT DETE CTED HCV Log PCR <1.18 NOT DETECTED NOT DETEC NIKKI Hep C Viral Load 2020-04-29 HepC Viral Load TNP NOT DETECTED HCV Log PCR TNP NOT DETECTED Hep C Viral Load 2020-04-29 HepC Viral Load <15 NOT DETECTED HCV Log PCR <1.18 NOT DETECTED LIVER PROFILE 2019-11-25 PROTEIN, TOTAL 6.4 6.5-8.0 ALBUMIN 3.9 3.5-5.0 BILIRUBIN, TOTAL 0.4 0.0-1.0 BILIRUBIN, DIRECT 0.2 0.0-0.5 ALK. PHOS. 55 39-117 GOT 19 5-31 GPT 23 0-31 CBC w DIFF 2019-11-25 WBC 5.8 4.8-10.8 ABSOLUTE NEUTROPHIL COUNT 3.2 2. 2-7.9 RBC 4.37 4.20-5.50 HEMOGLOBIN 13.1 12.0-16.0 HEMATOCRIT 37.6 37-47 MCV 86.0 80-98 MCH 29.9 27.0-33.0 MCHC 34.8 31.0-35.0 PLATELET COUNT 353 160-400 RDW 11.4 11.0-16.0 NEUTROPHILS 55.6 45-73 LYMPHOCYTES 36.0 20-40 MONOCYTES 5.7 2-11 EOSINOPHILS 1.8 0-4 BASOPHILS 0.9 0-2 BUN 2019-07-29 BUN 14 9-16 CREATININE [...] VIRAL LOAD 2019-07-29 HEP C VIRAL LOAD [id number] () HCV LOG PCR 6.14 () GI BIOPSY 2019-04-27 G.I. BIOPSY HCV RNA NS5A DRUG RESISTANCE 2018-09-23 HCV NS5a SUBTYPE 1a () DACLATASVIR RESISTANCE NOT PREDICTED () LEDIPASVIR RESISTANCE NOT PREDICTED () OMBITASVIR RESISTANCE NOT PREDICTED () ELBASVIR RESISTANCE NOT PREDICTED () HEPATITIS B CORE ANTIBODY 2018-08-21 HEPATITIS B CORE ANTIBODY REACTIVE NO NREACTIVE HCV RNA QN PROG TO GENOTYPE 2018-08-21 HCV RNA PCR QN [id number] () HCV RNA PCR QN 6.47 () HCV GENOTYPING SEE NOTE () HCV GENOTYPE LIPA 1a () HCV RNA NS5A DRUG RESISTANCE 2018-08-21 HCV NS5a SUBTYPE Test not performed () DACLATASVIR RESISTANCE Test not performed () LEDIPASVIR RESISTANCE Test not performed () OMBITASVIR RESISTANCE Test not performed () ELBASVIR RESISTANCE Test not performed () CHEM 7 PROFILE 2018-08-21 NA 139 135-145 K 4.4 3.3-5.1 CL 105 96-108 CO2 26 22-29 ANION GAP 12 12-20 GLUCOSE,RANDOM 87 60-115 BUN 17 9-16 CREATININE 0.72 0.5-1.4 ESTIMATED GFR >60 LIVER PROFILE 2018-08-21 PROTEIN, TOTAL 7.1 6.5-8.0 ALBUMIN 4.2 3.5-5.0 BILIRUBIN, TOTAL 0.5 0.0-1.0 BILIRUBIN, DIRECT 0.2 0.0-0.5 ALK. PHOS. 71 39-117 GOT 28 5-31 GPT 34 0-31 CBC w DIFF 2018-08-21 WBC 7.0 4.8-10.8 ABSOLUTE NEUTROPHIL COUNT 4.0 2. 2-7.9 RBC 4.74 4.20-5.50 HEMOGLOBIN 13.8 12.0-16.0 HEMATOCRIT 40.5 37-47 MCV 85.6 80-98 MCH 29.1 27.0-33.0 MCHC 34.0 31.0-35.0 PLATELET COUNT 371 160-400 RDW 11.8 11.0-16.0 NEUTROPHILS 57.3 45-73 LYMPHOCYTES 34.5 20-40 MONOCYTES 5.5 2-11 EOSINOPHILS 1.7 0-4 BASOPHILS 1.0 0-2 PROTHROMBIN TIME (PT, INR) 2018-08-21 INTERNATIONAL NORM. RATIO 0.9 SE E NOTE PROTHROMBIN TIME 10.7 10.8-13.0 HEPATITIS B PROFILE 2018-08-21 HEPATITIS B SURFACE ANTIGEN NEGATIVE NEGATIVE HEPATITIS B SURFACE ANTIBODY REACTIVE NONREACTIVE HEPATITIS B INTERPRETATION SEE NOTE HIV AG/AB 2018-08-21 HIV AG/AB NONREACTIVE NR ALPHA-FETOPROTEIN,TUMOR MARKER 2018-08-21 ALPHA-FETOPROTEIN,TUMOR MARKER 2.8 <6.1 HEPATITIS A ANTIBODY-IGG 2018-08-21 ANTI-HAV IGG REACTIVE NONREACTIVE HCV LIVER FIBROSIS, FIBRO TEST 2018-08-21 FIBROSIS SCORE 0.09 () FIBROSIS STAGE F0 () FIBROSIS INTERPRETATION SEE NOTE () NECROINFLAMMAT ACTIVITY SCORE 0.10 () NECROINFLAMMAT ACTIVITY GRADE A0 () NECROINFLAMMAT ACTIVITY INTERP SEE NOTE () AGBRM-4-RYSUBFEHVSJV 192 106-279 HAPTOGLOBIN 73 43-212 APOLIPOPROTEIN A1 229 101-198 TOTAL BILIRUBIN 0.4 0.2-1.2 GGT 27 3-70 ALT 29 6-29 REFERENCE ID [id number] () FOOTNOTE SEE NOTE () US ABD 2018-09-10 REASON FOR VISIT screening colonoscopy, hx of polyps, needs letter faxed for methadone, screening history of polyps,PATIENT CANCELLED PROCEDURE, screening colon, note, Patient presents today for chronic hepatitis c,schedule abd us , Patient presents today for hep c, Patient presents today for HEP C, PATIENT PRESENTS TODAY FOR HEP C, R/S todays appt /headcold, Hep C, r/s ov, patient presents today for HEP C, requ esting viral load labs , FINISHED LAST PILL FOR HEPATITIS, Ledipasvir/Sofosbuvir, Harvoni, Patient presents today for follow up office visit for a colon polyp, please schedule f/u in July 2019, Needs a note for , 4 month f/u, Wants to R/S , screening, [facility] Insurance terminated 12-05-18, Cancellingcolon/MAC, Not enough blood drawn, PATIENT PRESENTS TODAY FOR SCREENING COLON Insurance Providers Health Insurance Type Health Plan Insurance Address Health Plan Insurance Phone Health Plan Insurance Name Health Plan Coverage Dates Member ID Patient Relationship to Subscriber Patient Address Patient Phone Patient Name Patient Date of Subscriber ID Subscriber Name Subscriber Date of Group No [place] [address] [facility] [address] [employer] [place] self ALESSANDRA AUDELIA Ulloa [id number] [facility] Health Plan [address] [address] [facility] [id number] [facility] self ALESSANDRA Ulloa [id number] [facility] [address] [facility] [address] [facility] self ALESSANDRA AUDELIA Ulloa [id number] [facility] [address] [facility] [address] [facility] self ALESSANDRA AUDELIA Ulloa [id number] [facility] [address] [address] [facility] [address] [facility] [employer] self ALESSANDRA Ulloa [id number] [employer] [address] [facility] [address] [employer] self ALESSANDRA Ulloa [id number] [employer] [place] [address] [address] [facility] [id number] [employer] [place] self ALESSANDRA Ulloa [id number]
--- OUTSIDE RECORDS SUMMARY | 2023-02-06 06:38 | XMS_ITS | Patient Health Record ---
Author Name Unknown Organization [facility] Address Placement of archive d users [place], [place] [id number] Care Team Providers Care Reproduction Production Manager Name Role Phone Salina Alfred Unavailable Franky Hernandez Unavailable [phone] Robyn Manuel Unavailable PROBLEMS Type Condition ICD9-CM Code [id number] Code Onset Dates Condition Status W/U Status Risk SNOMED Code Notes Problem MENTAL/BEHAV IOR PROB NOS V40.9 confirmed 047232420 Problem Overweight BMI 25-29.9 278.00 confirmed [id number] Problem Depressive Disorder NOS 311 confirmed [id number] Problem Tobacco use disorder 305.1 confirmed [id number] Problem Alcohol dependence 303.90 confirmed [id number] Problem Opioid dependence 304.00 confirmed [id number] Problem Genital herpes simplex NOS 054.10 confirmed [id number] ALLERGIES No Known Allergies ENCOUNTERS from 1965 to 2023-02-06 Encounter Location Date Provider Diagnosis [address] [id number] Sep, Salina Alfred Pain in limb 729.5 ; Tobacco use disorder 305.1 ; Opioid dependence 304.00 ; Alcohol dependence 303.90 and Depressive Disorder NOS [address] [id number] May, Franky Hernandez Vaginitis 616.10 ; Influenza Vaccine V04.81 ; Alcohol dependence 303.90 ; Tdap V06.8 and Lab results reviewed V65.40 [facility] [address] [place] [id number] May, Franky Hernandez Vaginitis NOS 616.[address] [id number] May, 2013 Robyn Manuel Tobacco use disorder 305.[address] [id number] May, Franky Hernandez ROUTINE FUNERAL COUNSELOR EXAMINATION V72.31 ; MENTAL/BEHAVIOR PROB NOS V40.9 ; Genital herpes simplex NOS 054.10 ; SCREEN MAL NEOP-CERVIX V76.2 ; SCRN MAL REYNALDO BREAST NOS V76.10 ; SCREEN FOR INFEC DIS NOS V75.9 ; Insomnia 780.52 ; Anxiety disorder NOS 300.00 and Tobacco use disorder 305.[address] [id number] Oct, Salina ZZKennedy MENTAL/BEHAVIOR PROB NOS V40.9 ; Opioid dependence 304.00 ; Alcohol dependence 303.90 ; Tobacco use disorder 305.1 ; Genital herpes simplex NOS 054.10 and Dental abscess 522.[address] [id number] Aug, Salina ZZKennedy MENTAL/BEHAVIOR PROB NOS V40.9 ; Leukorrhea, not specified as infective 623.5 and Tobacco use disorder 305.[address] [id number] Jun, Salina ZZKennedy [address] [id number] Jun, Salina ZZKennedy MENTAL/BEHAVIOR PROB NOS V40.9 ; Tobacco use disorder 305.1 ; Opioid dependence 304.00 ; Alcohol dependence 303.90 and Carpal tunnel syndrome 354.[address] [id number] May, Salina ZZKennedy MENTAL/BEHAVIOR PROB NOS V40.9 ; Influenza Vaccine V04.81 and Tobacco use disorder 305.1 IMMUNIZATIONS Vaccine Route Administration Date Status Tdap Unknown Jun 02, 2013 Administered Influenza Unknown Jun 02, 2013 Administered Pneumococcal has never recei maycol will consider Unknown May 30, 2012 Administered Influenza Unknown May 30, 2012 Administered Td Unknown May 30, 2012 Administered PPD offered and declined Unknown May 30, 2012 Adm inistered SOCIAL HISTORY Tobacco Use: Social History Observation Description Date Details (start date - stop date) Current Smoker Sex Assigned At : Social History Observation Description Sex Assigned At Unknown Tobacco Use Assessment MU Question Answer Notes What is your current smoking status? current smo ker Patient counseled on the chuck smalls of tobacco use and advised to quit: 10/01/2012 Are you interested in quitting? Ready to quit How soon after you wake up do you smoke your fir st cigarette? within 5 min How many cigarettes a day do you smoke? 11-20 How often do you smoke? every day REASON FOR REFERRAL No Information VITAL SIGNS from 1965 to 2023-02-06 Height 62.125 in Sep, Weight 160 lbs Sep, BMI 29.14 kg/m2 Sep, Temperature 97.5 degrees Fahrenheit May, Blood pressure systolic 110 Sep, Blood pressure diastolic 68 Sep, MEDICATIONS Medication SIG (Take, Route, Frequency, Duration) Notes Start Date End Date Status Vistaril pamoate 50 mg 1 cap(s) orally Q HS prn for 30 day(s) Active cloNIDine 0.1 mg 1 tab(s) orally bid prn for 30 day(s) Active Wellbutrin SR 150 mg/12 hours 1 tab(s) orally 2 times a day for 30 day(s) Active Naprosyn 500 mg 1 tab(s) orally 2 ti mes a day with food for 30 day(s) Sep, Active Nicoderm C-Q 14 mg/24 hr 1 PATCH transde rmally once a day for 30 day(s) May, Active omeprazole 20 mg 1 cap(s) orally once a day for 30 day(s) Sep, Active acyclovir 400 mg 1 tab(s) orally tid for 5 day(s) Oct, Active RESULTS from 1965 to 2023-02-06 Component Value Reference Range Notes GC, DNA Urine - Life Lab Reviewed date:05/25/2013 22:03:31 Interpretation:Negative Performing Lab:[facility], ,[place] [address] Notes/Report: GC DNA Chlamydia, DNA Urine - Life Lab Reviewed date:05/25/2013 22:03:18 Interpretation:Negative Performing Lab:[facility], ,[place] [address] Notes/Report: Chlam DNA PAP Reviewed date:06/02/2013 09:21:38 Interpretation:neg sq intraepi lesion malignancy/no high risk HPV Performing Lab:[facility], ,[place] [address] Notes/Report: PAP Wet Mount, Vaginal Reviewed date:05/25/2013 22:30:43 Interpretation:neg yeast/trich pos clue cells Performing Lab:[facility], ,[place], [place] [email or web address] Notes/Report: Wet Mount, Vaginal Reviewed date:09/03/2012 09:07:13 Interpretation:no significant pathogens found Performing Lab:[facility], ,[place] [address] Notes/Report: PAP Reviewed date:02/18/2013 17:27:36 Interpretation:negative/trichomonas present Performing Lab:[facility], ,[place], [place] [email or web address] Notes/Report: PAP REASON FOR VISIT No Information MEDICAL (GENERAL) HISTORY Type Description Date Medical History Opioid/ETOH dependence Medical History quit smoking: September Medical History Mental Health Medical History Recurrent BV Medical History Herpes MENTAL STATUS No Information ASSESSMENTS Encounter Date Diagnosis Assessment Notes Treatment Notes Treatment Clinical Notes Sep, Pain in limb (ICD9-CM - 729.5) Wear cock up splints at night. Take Naprosyn for wrist pain. Fearful of developing an ulcer due to ETOH hx in the past while on NSAID trial--trial of omeprazole while on Naprsyn. Keep appt with PCP Sep, Tobacco use disorder (ICD9-CM - 305.1) Smoking: Planning Stage. Reviewed options for support therapy for smoking cessation and has choosen: Support offered in attempt to proceed with cessation. Use 14mg NRT : given two boxes of 14mg NRT patches. Advised in use, ok not to use at night if you get vivid dreams from them. Apply randi in the AM @ arising to upper body. Sep, Opioid dependence (ICD9-CM - 304.00) Supportive counseling in early attempt to be clean. Prior successes reviewed. Encouraged to use what works for him. Encouraged to focus on recovery every day. Strategies to avoid drug use discussed. Sep, Alcohol dependence (ICD9-CM - 303.90) Supportive counseling in early sobriety from alcohol use. Review of past sobriety and what worked. Encouraged to use tools that work for client. Encouraged to focus on recovery every day. Strategies to avoid alcohol use discussed. Sep, Depressive Disorder NOS (ICD9-CM - 311) Mental health contract in place with this narrative writer. Agrees to the following: will have rxs prescribed only by this narrative writer @ [facility]. Rx for one month at a time. Must see Dr Pantoja for PCP care and inquire if he will rx MH meds. If not, you need to find another MH provider in the are. After they prescribe for you, this narrative writer will not longer rx when he see the MH provider for MH meds.Rx is only a bridge prescription. No changes will be made to the dosages of medication currently taken. Client understands and agrees to the terms of this oral contract. For SI/HI or mental instability go to the ER. RTC one month for F/U. May, Vaginitis (ICD9-CM - 616.10) Completed tx, sx resolved, RTC with any issues. Given number for [facility] in [place]. Also considering calling Alphonse Loza for PCPNavin not taking new pts. May, Influenza Vaccine (ICD9-CM - V04.81) VIS reviewed. No contraindications for vaccine administration. Given per protocol. No adverse outcome after administration May, Alcohol dependence (ICD9-CM - 303.90) Doing well maintaining sobriety, living with brother who is supportive of recovery. May, Tdap (ICD9-CM - V06.8) VIS reviewed. No contraindications for vaccine administration. Given per protocol. No adverse outcome after administration May, Lab results reviewed (ICD9-CM - V65.40) PAP results reviewed, Neg sq intraepi lesion and malig, no high risk HPV, endocerv trans zone component. May, Other Understands lyndsey n. Allowed to clarify questions about plan. May, Vaginitis NOS (ICD9-CM - 616.10) Due to freq recurrence will tx x 10 days. May, Tobacco use disorder (ICD9-CM - 305.1) Trial of NRT begun. Apply one patch to upper body daily. remove old patch and dispose of carefully before applying a new patch. New use can cause tingling at site--ok to change sites or use hydrocortisone cream for tingling or irritation. S/E of NRT/OD discussed: dizziness, N/V, confusion and altered consciousness. Ok to not wear at night if NRT causes vivid dreams. Check BP weekly on therapy. Do not smoke while using NRT. May, ROUTINE FUNERAL COUNSELOR EXAMINATION (ICD9-CM - V72.31) Pap done, pt with white vaginal discharge, to call on Saturday for results of wet mount. Agrees with plan, will not get results of PAP for a few weeks. May, MENTAL/BEHAVIOR PROB NOS (ICD9-CM - V40.9) Agree to do bridge scripts on medication for pt, left transitional program in [facility] and now living in [facility] with her brother, sober. Will need to make MH appt in community and has new PCP assigned, needs to call for appt. May, Genital herpes simplex NOS (ICD9-CM - 054.10) No longer wants to take daily suppression tx, will trialgiving treatment for recurrences. May, SCREEN MAL NEOP-CERVIX (ICD9-CM - V76.2) PAP done, f/u 2 weeks for results. May, SCRN MAL REYNALDO BREAST NOS (ICD9-CM - V76.10) Will need mammo. done a few years ago, pt to discuss with new PCP in [facility]. May, SCREEN FOR INFEC DIS NOS (ICD9-CM - V75.9) Call on Saturday for results. May, Insomnia (ICD9-CM - 780.52) Agree to bridge script, uses infreq per pt. May, Anxiety disorder NOS (ICD9-CM - 300.00) May, Tobacco use disorder (ICD9-CM - 305.1) 15 minutes spent in counseling about smoking cessation with Dena Gomez CM. Patterns of smoking explored, triggers discussed, past attempts to quit and success in past attempts. NRT offered to assist in quitting. Given 14 mg patches from stock for 2 weeks, pt to call Dena Gomez next week to report on progress and then will have provider call in script, has used patches in past and quit for 2 years, agrees with plan. Oct, MENTAL/BEHAVIOR PROB NOS (ICD9-CM - V40.9) Mental health contract in place with this narrative writer. Agreed to the following: will have rxs prescribed only by this narrative writer @ [facility]. Rx for one month at a time. Must see therapist and have appts verified or no rxs. this narrative writer will not longer rx when he see the MH provider for MH meds.Rx is only a bridge prescription. No changes will be made to the dosages of medication currently taken. Client understands and agrees to the terms of this oral contract. For SI/HI or mental instability go to the ER. Decided not to see a psychiatrist. Informed that I can no longer prescribe for her after this appt. Will see PCP for med refills. Oct, Opioid dependence (ICD9-CM - 304.00) Supportive counseling in early attempt to be clean. Prior successes reviewed. Encouraged to use what works for him. Encouraged to focus on recovery every day. Strategies to avoid drug use discussed. Oct, Alcohol dependence (ICD9-CM - 303.90) Supportive counseling in early attempt to be clean. Prior successes reviewed. Encouraged to use what works for him. Encouraged to focus on recovery every day. Strategies to avoid drug use discussed. Oct, Tobacco use disorder (ICD9-CM - 305.1) Urged to continue cesstion efforts Oct, Genital herpes simplex NOS (ICD9-CM - 054.10) Understnads how and when to take medication for daily supression of genital herpes. Oct, Dental abscess (ICD9-CM - 522.5) Always gets a yeast infecton with antibx, Diflucan ordered of needed. Understands how ans when to rx. Oct, Other Declines to set up Mammogram today Aug, MENTAL/BEHAVIOR PROB NOS (ICD9-CM - V40.9) Mental health contract in place with this narrative writer. Agrees to the following: will have rxs prescribed only by this narrative writer @ [facility]. Rx for one month at a time. Must see therapist and have appts verified or no rxs. this narrative writer will not longer rx when he see the MH provider for MH meds.Rx is only a bridge prescription. No changes will be made to the dosages of medication currently taken. Client understands and agrees to the terms of this oral contract. For SI/HI or mental instability go to the ER. [facility] [phone], Aug, Leukorrhea, not specified as infective (ICD9-CM - 623.5) Self vaginal swab performed.Wet mount:No Trichomonas/BV. Vaginal culture to lab at request of Silva for examination Aug, Tobacco use disorder (ICD9-CM - 305.1) Should decrease to 7mg after 14mg NRT completed. Given #2 boxes of #7mg NRT. Continues to use NRT successfully. Handling cessation efforts with assist of [facility] team discussing strategies to continue quitting efforts. Encouraged in their success! Aug, Other meds called int o [facility] in [place] [phone] by RS. Jun, MENTAL/BEHAVIOR PROB NOS (ICD9-CM - V40.9) Caitlyn Lafleur consulted with. She agrees to see Silva if she is able to see [facility] first for an initial MH evaluation. , Mental health contract in place with this narrative writer. Agrees to the following: will have rxs prescribed only by this narrative writer @ [facility]. Rx for one month at a time. Must see therapist and have appts verified or no rxs. this narrative writer will not longer rx when he see the MH provider for MH meds.Rx is only a bridge prescription. No changes will be made to the dosages of medication currently taken. Client understands and agrees to the terms of this oral contract. For SI/HI or mental instability go to the ER. Jun, Tobacco use disorder (ICD9-CM - 305.1) quit date: 08-07-11--support ofered in auit attempt--advised to have BP checked weekly while using NRT with Welbutrin SRdue to chance of elevated BP. Jun, Opioid dependence (ICD9-CM - 304.00) 2 months clean. , Supportive counseling in early attempt to be clean. Prior successes reviewed. Encouraged to use what works for him. Encouraged to focus on recovery every day. Strategies to avoid drug use discussed. Jun, Alcohol dependence (ICD9-CM - 303.90) sober 2 months- Supportive counseling in early sobriety from alcohol use. Review of past sobriety and what worked. Encouraged to use tools that work for client. Encouraged to focus on recovery every day. Strategies to avoid alcohol use discussed. Jun, Carpal tunnel syndrome (ICD9-CM - 354.0) ? Carpal tunnel syndrome. wrist splints @ night--given left wrist splint--demo's use--wear @ night. Use Naprosyn @ night with food x 30 d @ then prn->day. x 6-.8 weeks. Trial of Lido derm patches--cut in half and apply to wrist with wristsplints. I will order a Right wrist splint. Call [phone] or [phone] when wrist splint obtained. [facility]. Ok to give to another resident coming to [facility] Jun, Other [facility] [address] [place] [facility] called by YULIYA @12 noon. Ok with plan May, MENTAL/BEHAVIOR PROB NOS (ICD9-CM - V40.9) [facility]-verified by Manju Tomlin RN . [facility] called with rxs except NRT. , Mental health contract in place with this narrative writer. Agrees to the following: will have rxs prescribed only by this narrative writer @ [facility]. Rx for one month at a time. Must see therapist and have appts verified or no rxs. this narrative writer will not longer rx when he see the MH provider for MH meds.Rx is only a bridge prescription--client understands and agrees to the terms of this oral contract. For SI/HI or mental instability go to the ER. F/U one month 06-26-12 9am. May, Influenza Vaccine (ICD9-CM - V04.81) Nervous but VIS reviewed. No contraindications for vaccine administration. Given per protocol. No adverse outcome after administration May, Tobacco use disorder (ICD9-CM - 305.1) Given one box from stock plus 6 loose NRT patches.Strategies reviewed for quitting. Will set quit day and start NRT within one month PLAN OF TREATMENT Medication Medication Name Sig Start Date Stop Date Naprosyn 500 mg 1 tab(s) orally 2 ti mes a day with food for 30 day(s) Sep, Nicoderm C-Q 14 mg/24 hr 1 PATCH transde rmally once a day for 30 day(s) May, Wellbutrin SR 150 mg/12 hours 1 tab(s) o rally 2 times a day for 30 day(s) omeprazole 20 mg 1 cap(s) orally once a day for 30 day(s) Sep, Treatment Notes Assessment Notes Clinical Notes MENTAL/BEHAVIOR PROB NOS Agree to do marco dge scripts on medication for pt, left transitional program in [facility] and now living in [place] with her brother, sober. Will need to make MH appt in community and has new PCP assigned, needs to call for appt. Insomnia Agree to bridge scri pt, uses infreq per pt. Opioid dependence Supportive counselin g in early attempt to be clean. Prior successes reviewed. Encouraged to use what works for him. Encouraged to focus on recovery every day. Strategies to avoid drug use discussed. SCREEN FOR INFEC DIS NOS Call on Saturday for results. Influenza Vaccine Nervous but VIS revi ewed. No contraindications for vaccine administration. Given per protocol. No adverse outcome after administration Influenza Vaccine VIS reviewed. No con traindications for vaccine administration. Given per protocol. No adverse outcome after administration Tobacco use disorder 15 minutes spent in counseling about smoking cessation with Dena Gomez CM. Patterns of smoking explored, triggers discussed, past attempts to quit and success in past attempts. NRT offered to assist in quitting. Given 14 mg patches from stock for 2 weeks, pt to call Dena Gomez next week to report on progress and then will have provider call in script, has used patches in past and quit for 2 years, agrees with plan. Opioid dependence Supportive counselin g in early attempt to be clean. Prior successes reviewed. Encouraged to use what works for him. Encouraged to focus on recovery every day. Strategies to avoid drug use discussed. Opioid dependence 2 months clean. , Louie pportive counseling in early attempt to be clean. Prior successes reviewed. Encouraged to use what works for him. Encouraged to focus on recovery every day. Strategies to avoid drug use discussed. Alcohol dependence Supportive counselin g in early attempt to be clean. Prior successes reviewed. Encouraged to use what works for him. Encouraged to focus on recovery every day. Strategies to avoid drug use discussed. Tobacco use disorder Should decrease to 7mg after 14mg NRT completed. Given #2 boxes of #7mg NRT. Continues to use NRT successfully. Handling cessation efforts with assist of [facility] team discussing strategies to continue quitting efforts. Encouraged in their success! SCRN MAL REYNALDO BREAST NOS Will need mammo. done a few years ago, pt to discuss with new PCP in [place]. Genital herpes simplex NOS Understnads h ow and when to take medication for daily supression of genital herpes. Leukorrhea, not specified as infective Self vaginal swab performed.Wet mount:No Trichomonas/BV. Vaginal culture to lab at request of Silva for examination Dental abscess Always gets a yeast infecton with antibx, Diflucan ordered of needed. Understands how ans when to rx. Tobacco use disorder Smoking: Planning S qamare. Reviewed options for support therapy for smoking cessation and has choosen: Support offered in attempt to proceed with cessation. Use 14mg NRT : given two boxes of 14mg NRT patches. Advised in use, ok not to use at night if you get vivid dreams from them. Apply randi in the AM @ arising to upper body. Lab results reviewed PAP results reviewe d, Neg sq intraepi lesion and malig, no high risk HPV, endocerv trans zone component. Alcohol dependence Supportive counselin g in early sobriety from alcohol use. Review of past sobriety and what worked. Encouraged to use tools that work for client. Encouraged to focus on recovery every day. Strategies to avoid alcohol use discussed. Tobacco use disorder Trial of NRT begun. Apply one patch to upper body daily. remove old patch and dispose of carefully before applying a new patch. New use can cause tingling at site--ok to change sites or use hydrocortisone cream for tingling or irritation. S/E of NRT/OD discussed: dizziness, N/V, confusion and altered consciousness. Ok to not wear at night if NRT causes vivid dreams. Check BP weekly on therapy. Do not smoke while using NRT. Alcohol dependence sober 2 months- Supp ortive counseling in early sobriety from alcohol use. Review of past sobriety and what worked. Encouraged to use tools that work for client. Encouraged to focus on recovery every day. Strategies to avoid alcohol use discussed. MENTAL/BEHAVIOR PROB NOS Caitlyn wells onsulted with. She agrees to see Silva if she is able to see [facility] first for an initial MH evaluation. , Mental health contract in place with this narrative writer. Agrees to the following: will have rxs prescribed only by this narrative writer @ [facility]. Rx for one month at a time. Must see therapist and have appts verified or no rxs. this narrative writer will not longer rx when he see the MH provider for MH meds.Rx is only a bridge prescription. No changes will be made to the dosages of medication currently taken. Client understands and agrees to the terms of this oral contract. For SI/HI or mental instability go to the ER. SCREEN MAL NEOP-CERVIX PAP done, f/u 2 w eeks for results. Pain in limb Wear cock up splints at night. Take Naprosyn for wrist pain. Fearful of developing an ulcer due to ETOH hx in the past while on NSAID trial--trial of omeprazole while on Naprsyn. Keep appt with PCP Tobacco use disorder Urged to continue c esstion efforts MENTAL/BEHAVIOR PROB NOS Mental health c ontract in place with this narrative writer. Agrees to the following: will have rxs prescribed only by this narrative writer @ [facility]. Rx for one month at a time. Must see therapist and have appts verified or no rxs. this narrative writer will not longer rx when he see the MH provider for MH meds.Rx is only a bridge prescription. No changes will be made to the dosages of medication currently taken. Client understands and agrees to the terms of this oral contract. For SI/HI or mental instability go to the ER. [facility] [phone], Carpal tunnel syndrome ? Carpal tunnel s yndrome. wrist splints @ night--given left wrist splint--demo's use--wear @ night. Use Naprosyn @ night with food x 30 d @ then prn->day. x 6-.8 weeks. Trial of Lido derm patches--cut in half and apply to wrist with wristsplints. I will order a Right wrist splint. Call [phone] or [phone] when wrist splint obtained. [facility]. Ok to give to another resident coming to [facility] MENTAL/BEHAVIOR PROB NOS Mental health c ontract in place with this narrative writer. Agreed to the following: will have rxs prescribed only by this narrative writer @ [facility]. Rx for one month at a time. Must see therapist and have appts verified or no rxs. this narrative writer will not longer rx when he see the MH provider for MH meds.Rx is only a bridge prescription. No changes will be made to the dosages of medication currently taken. Client understands and agrees to the terms of this oral contract. For SI/HI or mental instability go to the ER. Decided not to see a psychiatrist. Informed that I can no longer prescribe for her after this appt. Will see PCP for med refills. Tdap VIS reviewed. No con traindications for vaccine administration. Given per protocol. No adverse outcome after administration ROUTINE FUNERAL COUNSELOR EXAMINATION Pap done, pt wit h white vaginal discharge, to call on Saturday for results of wet mount. Agrees with plan, will not get results of PAP for a few weeks. Vaginitis Completed tx, sx res olved, RTC with any issues. Given number for [facility] in [place]. Also considering calling Alphonse Loza for PCP, Navin Coy not taking new pts. Depressive Disorder NOS Mental health co ntract in place with this narrative writer. Agrees to the following: will have rxs prescribed only by this narrative writer @ [facility]. Rx for one month at a time. Must see Dr Pantoja for PCP care and inquire if he will rx MH meds. If not, you need to find another MH provider in the are. After they prescribe for you, this narrative writer will not longer rx when he see the MH provider for MH meds.Rx is only a bridge prescription. No changes will be made to the dosages of medication currently taken. Client understands and agrees to the terms of this oral contract. For SI/HI or mental instability go to the ER. RTC one month for F/U. Genital herpes simplex NOS No longer wan ts to take daily suppression tx, will trialgiving treatment for recurrences. Tobacco use disorder Given one box from stock plus 6 loose NRT patches.Strategies reviewed for quitting. Will set quit day and start NRT within one month Alcohol dependence Doing well maintaini sobriety, living with brother who is supportive of recovery. Vaginitis NOS Due to freq recurren ce will tx x 10 days. MENTAL/BEHAVIOR PROB NOS Miriam Rodriguez-verified by Manju Tomlin RN . [facility] called with rxs except NRT. , Mental health contract in place with this narrative writer. Agrees to the following: will have rxs prescribed only by this narrative writer @ [facility]. Rx for one month at a time. Must see therapist and have appts verified or no rxs. this narrative writer will not longer rx when he see the MH provider for MH meds.Rx is only a bridge prescription--client understands and agrees to the terms of this oral contract. For SI/HI or mental instability go to the ER. F/U one month 06-26-12 9am. Tobacco use disorder quit date: 08-07-11- -support ofered in auit attempt--advised to have BP checked weekly while using NRT with Welbutrin SRdue to chance of elevated BP. Next Appt Details 4 Weeks Reason:f/u MH if not rx from PCP for MH medications Follow Up:4 Weeksf/u MH if not rx from PCP for MH medications Insurance Providers Payer Name Payer Address Payer Phone Insured Name Patient Relationship to Insured Coverage Start Date Coverage End Date Subscriber Number Group Number [facility] Plan [address] [address] [facility] [address] Silva Covarrubias Self - patient is the insured [id number]
[2023-02-06 06:52] VITALS: BP 142/75; PULSE 77; RESP 20; TEMP 36.1; O2SAT 97; BMI 25.2
[2023-02-06 07:03] VITALS: BMI 25.2
--- NOTE | 2023-02-06 07:17 | PC.NURSE ---
pt stated head/chest cold x 2 days nasal and chest richards dng occas. no sob. no fever. Dr. Henson aware, udn ordered and given. sats 95-97% ra, general fatigue with some occas c/o reflux. tutu cam udn at 0719.
[2023-02-06] MEDS: Albuterol Sulfate (0.083%) 2.5 MG/3 ML VIAL.NEB INHALE (07:18)
[2023-02-06 07:19] VITALS: PULSE 69; RESP 17; O2SAT 95
[2023-02-06] MEDS: Lactated Ringers 1,000 ML 100 ML IVCONT (07:21)
--- NOTE | 2023-02-06 07:29 | P.CONAN_ITS ---
HPI - Anesthesia Eval Consult details Narrative: 57 yo female patient for Colonoscopy PMFSH Active Problems Active Problems: C/o head cold this am. Productive of richards discharge. Fatigue. No fever. Home covid test negative. Smoker. Lungs Clear Prepped for Colonoscopy Past Medical History Medical History Depression History of alcohol abuse History of hepatitis C History of substance abuse Family History Family history of problems with anesthesia: No Surgical History Surgical History History of bilateral carpal tunnel release History of colonoscopy History of eye surgery History of plastic surgery History of Problems with Anesthesia: No Social History Social History Patient Tobacco Use Status: Current everyday Tobacco user Cigarettes Per Day: 7 Date Education Initiated: 02/06/23 Use of substances other than those prescribed or required for medical reasons: No Substance Use Type Other:: methadone for previous heroine years ago Are you DNR?: No Advance Directives: No Advance Directives Information Provided: Yes Meds Allergies Allergy/AdvReac Type Severity Reaction Status Date / Time No Known Allergies Allergy Unverified 03/24/20 14:45 [No Known Allergies*] Active Medications: Current Medications Lactated Ringer's (Lr) 1,000 mls @ 100 mls/hr IVCONT .Q10H MARTHA Last Admin: 02/06/23 07:21 Dose: 100 mls/hr Sodium Biphosphate/Sodium Phosphate (Sodium Phosphate,[place]-Dibasic 133 Ml Enema) 133 ml NE ONCE PRN PRN Reason: Poor Colonoscopy Prep Results Home Medications Medication Instructions Recorded Confirmed Last Taken Type methadone 27 mg PO DAILY 04/20/22 02/06/23 02/06/23 History Exam Exam Date and Time: February 06, 2023 0729 Height,Weight and Vital Signs: Height 5 ft 2 in Weight 62.596 kg Last Vital Signs Temp 96.9 F 02/06/23 06:52 Pulse 69 02/06/23 07:19 Resp 17 02/06/23 07:19 BP 142/75 H 02/06/23 06:52 Pulse Ox 97 02/06/23 06:52 O2 Del Method Room Air 02/06/23 06:52 Airway Mallampati Class: II TM Dist: >3cm Neck ROM: Full Loose/Missing/Broken Teeth: Yes (Some missing teeth. Denies broken or loose teeth) Heart: RRR Lungs: S/p respiratory treatment. Lungs CTAB. Slightly diminished. No wheezing or added sounds Assessment and Plan Assessment Anesthesia Assessment: Anesthesia Plan Discussed and Chart Reviewed Final Anesthetic Review Family History of Problems with Anesthesia: No History of Problems with Anesthesia: No NPO: Yes ASA Class: III Final Preanesthetic Review: No Changes in Pt Med Stat, Meds/Allgs Chart Reviewed, Consent Obtained/Reviewed and Anes Risks/Benef Reviewed Patient Risk: Intermediate Procedure Risk: Low Assessment/Block/Sedation in SS: Assess/Block/Sedation-SS Anesthetic Plan Anesthetic Plan: MAC: Disposition: Standard PACU
[2023-02-06 08:26] VITALS: BP 105/53; PULSE 71; RESP 16; TEMP 36.1; O2SAT 97
--- NOTE | 2023-02-06 08:28 | PM.OP ---
Brief Operative Note Date of Service: 02/06/23 Pre-op diagnosis: Screening Post-op diagnosis: other (Diverticulosis) Procedure: Colonoscopy to the cecum Surgeon: Yash Wilson Anesthesia: MAC Was an Bottle Packing Machine Cleaner used for this Procedure?: No Estimated blood loss (mL): 0 Pathology: none sent Condition: stable Disposition: PACU
[2023-02-06 08:41] VITALS: BP 160/75; PULSE 75; RESP 16; TEMP 36.2; O2SAT 100
--- NOTE | 2023-02-06 09:03 | OP_ITS ---
DATE OF SERVICE: 02/06/2023 SURGEON: Yash Wilson MD INDICATIONS: The patient presents for evaluation of personal history of tubular adenoma of the colon and colorectal cancer screening. Full consent has been obtained from her for this, including risks of bleeding and perforation. PREOPERATIVE DIAGNOSIS: Colorectal cancer screening and personal history of tubular adenoma of the colon. POSTOPERATIVE DIAGNOSIS: Colorectal cancer screening and personal history of tubular adenoma of the colon, diverticulosis, internal hemorrhoids. PROCEDURE PERFORMED: Colonoscopy to cecum. ESTIMATED BLOOD LOSS: COMPLICATIONS: ANESTHESIA: Monitored anesthesia care. ASSISTANTS: SPECIMENS: DESCRIPTION OF PROCEDURE: The patient was placed in the left lateral decubitus position. The digital rectal exam revealed no abnormalities. The Olympus video pediatric colonoscope was entered into the rectum and advanced easily to the cecum. Once in the cecum, I did identify normal-appearing cecal pouch with appendiceal orifice, and a normal-appearing ileocecal valve. The entire cecum was well visualized and appeared normal. The scope was slowly withdrawn assessing all mucosal surfaces carefully. Preparation was excellent. I did not visualize any sign of polyps, colitis, nor angiodysplasia. There was a mild amount of sigmoid diverticulosis. In the rectum, scope was retroflexed visualizing internal hemorrhoids, but no other pathology. The rectal mucosa appeared normal. The scope was straightened, and withdrawn from the patient. She tolerated the procedure well and was returned to the recovery area in stable condition. IMPRESSION: 1. Diverticulosis. 2. Internal hemorrhoids. PLAN: I would recommend a repeat colonoscopy in 5 years. She should see me within 1 year for followup in regard to the previous history of hepatitis C. MD WALESKA Gonsalez/THOMPSON / [id number] GIANFRANCO
== END 2023-02-06 09:04 | disposition home or self-care (01) ==
PROVIDERS: PCP Internal Medicine; Visit Provider Internal Medicine
PROC: 0DJD8ZZ Inspection of Lower Intestinal Tract, Via Natural or Artificial Opening Endoscopic (ICD-10-PCS; CPT 45378; principal; 2023-02-06 07:30)
DX: Z12.11 Encounter for screening for malignant neoplasm of colon (principal); Z86.010 Personal history of colon polyps; K57.30 Diverticulosis of large intestine without perforation or abscess without bleeding; K64.8 Other hemorrhoids; F32.A Depression, unspecified; F19.11 Other psychoactive substance abuse, in remission; F10.11 Alcohol abuse, in remission; Z86.19 Personal history of other infectious and parasitic diseases; Z79.1 Long term (current) use of non-steroidal anti-inflammatories (NSAID); Z79.82 Long term (current) use of aspirin
CPT/HCPCS: 45378; 94640

== ENCOUNTER 2023-09-10 15:50 | Outpatient (REF) | payer OTHER, SELFPAY ==
[2023-09-10 15:52] LABS: MANUAL DIFF FLAG NO
[2023-09-10 16:00] LABS: Appearance Urine Cloudy; Color Urine Dark Yellow; Glucose Urine UA Negative (Negative); Leukocyte Esterase Urine Trace (Negative); Nitrite Urine Negative (Negative); PH 5.5 (5.0-9.0); Specific Gravity - Urine 1.025 (1.005-1.025); UMIC TRIGGER UACC YES; Urine Blood Negative (Negative); Urine Ketones Trace mg/dL (Negative); Urine Protein Negative (Neg-Trace)
[2023-09-10 16:11] LABS: Basophils Percent Auto 0.4 % (0-2); Eosinophils Absolute Auto 0.2 X10*3/uL (0.0-0.4); Eosinophils Percent Auto 1.5 % (0-4); Hematocrit 43.4 % (37.0-47.0); Hemoglobin 13.8 g/dl (12.0-16.0); Imm Gran Abs Auto 0.04 X10*3/uL (0.00-0.03); Imm Gran Pct Auto 0.4 % (0.0-0.4); Lymphocytes Percent Auto 18.1 % (20-40); Mean Corpuscular HGB Conc 31.8 g/dl (31.0-35.0); Mean Corpuscular Hemoglobin 28.4 pg (27.0-33.0); Mean Corpuscular Volume 89.3 fL (80.0-98.0); Mean Platelet Volume 9.3 fL (9.4-12.3); Monocytes Absolute Auto 0.5 X10*3/uL (0.1-1.2); Monocytes Percent Auto 4.9 % (2-11); Neutrophils Absolute Auto 8.2 x10*3/uL (2.0-8.3); Neutrophils Percent Auto 74.7 % (45-73); Platelet Count 541 X10*3/uL (160-400); Red Blood Count 4.86 X10*6/uL (4.20-5.50); Red Cell Distribution Width 13.3 % (11.0-16.0)
[2023-09-10 16:22] LABS: Bacteria Urine 4+ (None Seen); RBC Urine 0-2 /HPF (0-2); Squamous Epithelial Cell Urine >20 /HPF (0-2); WBC Urine 0-5 /HPF (0-5)
== END 2023-09-10 15:51 | disposition home or self-care (01) ==
LOC: HO.LNP 15:50
PROVIDERS: Visit Provider Internal Medicine
DX: R31.9 Hematuria, unspecified (principal); K92.0 Hematemesis
CPT/HCPCS: 81001; 85025

== ENCOUNTER 2023-09-19 11:17 | Outpatient (REF) | payer OTHER, SELFPAY ==
[2023-09-19 11:20] LABS: MANUAL DIFF FLAG NO
[2023-09-19 11:51] LABS: Basophils Percent Auto 0.5 % (0-2); Eosinophils Absolute Auto 0.3 X10*3/uL (0.0-0.4); Hematocrit 42.3 % (37.0-47.0); Hemoglobin 13.6 g/dl (12.0-16.0); Imm Gran Abs Auto 0.05 X10*3/uL (0.00-0.03); Imm Gran Pct Auto 0.6 % (0.0-0.4); Lymphocytes Absolute Auto 2.7 X10*3/uL (1.2-4.9); Lymphocytes Percent Auto 32.5 % (20-40); Mean Corpuscular HGB Conc 32.2 g/dl (31.0-35.0); Mean Corpuscular Hemoglobin 29.3 pg (27.0-33.0); Mean Corpuscular Volume 91.2 fL (80.0-98.0); Mean Platelet Volume 9.6 fL (9.4-12.3); Monocytes Absolute Auto 0.6 X10*3/uL (0.1-1.2); Neutrophils Absolute Auto 4.5 x10*3/uL (2.0-8.3); Neutrophils Percent Auto 55.4 % (45-73); Platelet Count 527 X10*3/uL (160-400); Red Blood Count 4.64 X10*6/uL (4.20-5.50); Red Cell Distribution Width 13.5 % (11.0-16.0); White Blood Count 8.2 X10*3/uL (4.8-10.8)
[2023-09-19 12:04] LABS: Alanine Aminotransferase 10 U/L (0-31); Albumin Level 3.7 g/dL (3.5-5.0); Alkaline Phosphatase 63 U/L (39-117); Anion Gap 8 (12-20); Aspartate Amino Transferase 13 U/L (5-31); Bilirubin Total 0.3 mg/dL (0.0-1.0); Blood Urea Nitrogen 11 mg/dL (9-16); Calcium 9.3 mg/dL (8.4-10.2); Carbon Dioxide 33 mmol/L (22-29); Chloride 106 mmol/L (96-108); Cholesterol 196 mg/dL (<200); Estimated Glomerular Filt Rate > 60; Glucose Fasting 121 mg/dL (60-99); HDL Cholesterol 64 mg/dL (>40); LDL Cholesterol Calculated 120 mg/dL (<100); Potassium 4.4 mmol/L (3.3-5.1); Sodium 143 mmol/L (135-145); Total Protein 6.8 g/dL (6.5-8.0); Triglycerides 60 mg/dL (<150)
== END 2023-09-19 11:18 | disposition home or self-care (01) ==
LOC: HO.LNP 11:17
PROVIDERS: Visit Provider Internal Medicine
DX: Z00.00 Encounter for general adult medical examination without abnormal findings (principal); D72.820 Lymphocytosis (symptomatic)
CPT/HCPCS: 80053; 80061; 85025

== ENCOUNTER 2024-10-13 10:04 | Outpatient (REF) | payer OTHER, SELFPAY ==
[2024-10-13 10:09] LABS: MANUAL DIFF FLAG NO
[2024-10-13 10:38] LABS: Appearance Urine Cloudy; Basophils Absolute Auto 0.1 X10*3/uL (0.0-0.2); Basophils Percent Auto 0.6 % (0-2); Color Urine Yellow; Eosinophils Absolute Auto 0.3 X10*3/uL (0.0-0.4); Eosinophils Percent Auto 2.9 % (0-4); Glucose Urine UA Negative (Negative); Hematocrit 42.4 % (37.0-47.0); Hemoglobin 13.2 g/dl (12.0-16.0); Imm Gran Abs Auto 0.04 X10*3/uL (0.00-0.03); Imm Gran Pct Auto 0.4 % (0.0-0.4); Leukocyte Esterase Urine Large (3+) (Negative); Lymphocytes Absolute Auto 2.2 X10*3/uL (1.2-4.9); Lymphocytes Percent Auto 23.2 % (20-40); Mean Corpuscular HGB Conc 31.1 g/dl (31.0-35.0); Mean Corpuscular Hemoglobin 27.7 pg (27.0-33.0); Mean Corpuscular Volume 88.9 fL (80.0-98.0); Mean Platelet Volume 9.4 fL (9.4-12.3); Monocytes Absolute Auto 0.9 X10*3/uL (0.1-1.2); Monocytes Percent Auto 9.6 % (2-11); Neutrophils Absolute Auto 6.1 x10*3/uL (2.0-8.3); Neutrophils Percent Auto 63.3 % (45-73); Nitrite Urine Negative (Negative); PH 5.5 (5.0-9.0); Platelet Count 528 X10*3/uL (160-400); Red Blood Count 4.77 X10*6/uL (4.20-5.50); Red Cell Distribution Width 13.8 % (11.0-16.0); UMIC TRIGGER UACC YES; Urine Blood Negative (Negative); Urine Ketones Negative (Negative); Urine Protein Negative (Neg-Trace); White Blood Count 9.6 X10*3/uL (4.8-10.8)
[2024-10-13 10:41] LABS: Bacteria Urine Trace (None Seen); Hyaline Casts Urine 0-2 /LPF (0-2); RBC Urine 0-2 /HPF (0-2); UACC Culture Trigger YES; WBC Urine 21-50 /HPF (0-5)
[2024-10-13 10:56] LABS: Alanine Aminotransferase 20 U/L (0-31); Albumin Level 3.9 g/dL (3.5-5.0); Alkaline Phosphatase 83 U/L (39-117); Anion Gap 8 (12-20); Aspartate Amino Transferase 27 U/L (5-31); Bilirubin Total 0.3 mg/dL (0.0-1.0); Blood Urea Nitrogen 13 mg/dL (9-16); Calcium 9.2 mg/dL (8.4-10.2); Carbon Dioxide 28 mmol/L (22-29); Chloride 107 mmol/L (96-108); Cholesterol 213 mg/dL (<200); Estimated Glomerular Filt Rate > 60; Glucose Fasting 97 mg/dL (60-99); HDL Cholesterol 66 mg/dL (>40); LDL Cholesterol Calculated 137 mg/dL (<100); Potassium 4.4 mmol/L (3.3-5.1); Sodium 139 mmol/L (135-145); Total Protein 7.2 g/dL (6.5-8.0); Triglycerides 50 mg/dL (<150)
[2024-10-13 11:15] LABS: Vitamin D 25-OH Total 16.1 ng/mL (>30)
--- OUTSIDE RECORDS SUMMARY | 2024-10-13 11:45 | XMS_ITS | Patient Health Record ---
Author Organization [facility] Address [address] [place] [address] Care Team Providers Care Evaluation Advisor Name Role Phone Ronnie Cohn MD Primary Care Provider Unavailab Yash Montero Unavailable [phone] Allergies No Known Allergies Reason For Referral Referring Provider First Name Ronnie Referring Provider Last Name Suki Referring Provider Speciality Internal M edicine Referred Organization [facility] Referred Provider Yash Wilson Referred Address [address],[place], [place],[address],[place] Referred Provider Specialty Gastroentero logy General Notes Fernanda Pedraza 024 10:01:40 AM EDT > SPOKE WITH PT AND NOTIFIED HER THAT I DO NOT BELIEVE DR HODGES ACCEPTS [facility]. SHE WILL CHECK AND CALL ME BACK SO I CAN OBTAIN AN INSURANCE REFERRAL, Fernanda Pedraza 04/21/2024 10:45:44 AM EDT > PT STATES DR HODGES DOES TAKE [facility] SHOW SHE IS GOING TO [employer]OOSE [employer] AND CALL ME BACK WITH THE INFORMATION, Fernanda Pedraza 05/13/2024 11:45:20 AM EST > Dr. Cohn will do a one time courtesy referral.....needs to establish relationship with them or see if the patient has [facility] Referral Priority Routine Medications Medication SIG (Take, Route, Fr equency, Duration) Notes Start Date End Date Status Multivitamin Adults - as directed Orally once a day Active Methadone HCl 10 MG 12 mg Orally Once a day Active Aspir-81 Active Ibuprofen Active Immunizations Vaccine Route Administration Date Status Comme nts Influenza Unknown 06/07/2018 Administered Influenza Unknown 04/01/2019 Administered Influenza Unknown 04/13/2020 Administered Influenza Unknown 05/30/2021 Administered Social History Tobacco Use: Social History Observation Description Date Details (start date - stop date) Never Smoker NA - NA Tobacco Use/Smoking Question Answer Notes Patient is a nonsmoker Alcohol Screen Question Answer Notes Did you have a drink containing alcohol in the p ast year? No Points 0 Interpretation Negative Section Notes: As per PMH; nonsmoker since 2016 As per PMH; nonsmoker since 2016 As per PMH; Smoker As per PMH; Smoker As per PMH; Smoker Problems Problem Type SNOMED Code ICD Code Onset Dates Problem Status W/U Status Risk Notes Problem 041687253 Encounter for screening for malignant neoplasm of colon (Z12.11) Active confirmed Problem 469926373 History of adenomatous polyp of colon (Z86.010) Active confirmed Problem History of polyp of colon (131804743) Personal history of colonic polyps (Z86.010) Active confirmed Problem 500407268 Chronic hepatiti s C without hepatic coma (B18.2) Active confirmed Problem 03517253 Chronic hepatiti s (K73.9) Active confirmed Problem History of polyp of colon (642314283) History of colon polyps (Z86.010) Active confirmed Problem History of hepatitis C (54631061771772) History of hepatitis C (Z86.19) Active confirmed Problem Diverticulosis of colon (773987902) Diverticulosis of colon (K57.30) Active confirmed Encounters Encounter Location Date Provider Diagnosis [facility] [address] [place] [phone] 10/06/[address] [facility] [address] [place] [phone] 01/21/[address] [facility] [address] [place] [phone] 05/27/2024 Yash Wilson Plan Of Treatment Pending Test Test Name Order Date LIVER PROFILE 06/07/2021 LIVER PROFILE 12/01/2019 LIVER PROFILE 04/27/2020 LIVER PROFILE 10/05/2019 LIVER PROFILE 08/07/2019 CBC w DIFF 08/07/2019 CBC w DIFF 06/07/2021 CBC w DIFF 12/01/2019 CBC w DIFF 04/27/2020 CBC w DIFF 10/05/2019 PROTHROMBIN TIME (PT, INR) 06/07/2021 ALPHA-FETOPROTEIN,TUMOR MARKER 1 HEPATITIS C VIRAL LOAD 06/07/2021 HEPATITIS C VIRAL LOAD 08/07/2019 HEPATITIS C VIRAL LOAD 12/01/2019 HEPATITIS C VIRAL LOAD 04/27/2020 HEPATITIS C VIRAL LOAD 10/05/2019 US ABD 12/20/2021 HCV LIVER FIBROSIS, FIBRO TEST 1 HCVVL REFLEX GENOTYPE REFLEX NS5A 2018 US ABDOMEN COMP WITH ELASTOGRAPHY 2020 Future Test Test Name Order Date COLONOSCOPY 08/21/2018 COLONOSCOPY 12/20/2021 Insurance Providers Payer Name Payer Address Payer Phone Subscriber Number Group Number Insured Name Patient Relationship to Insured Coverage Start Date Coverage End Date [id number] [address] [address] [place], [place] [id number] AUDELIA Ulloa ALESSANDRA Self - patient is the insured MEDICAID OF [employer] [address] [place] [address] [id number] AUDELIA Ulloa ALESSANDRA Self - patient is the insured Medical (General) History Medical History History ICD Code Denies [place],DM,CVA,Lung disease,renal dise ase Reports Hepatitis C treatmen t in 2001 with Peg-IF and Ribavirin with approx 7-8 months--reports that she was still + after the treatment--she had a liver biopsy--all in 2018 Hepatitis C Genotype 1A, Fibrosis score of F0--treated with 8 weeks of Harvoni from July, through the end of September,--her hepatitis C viral load was nondetectable and her LFTs were normal in Nov, 2019.Hep C viral load negative in 04/2020 and in 06/2021. Hx of substance abuse and al cohol abuse--abstinent for 3 years and 6 years, respectively Depression Screening colonoscopy in Apr with removal of a flat tubular adenoma from the ascending colon Surgical History Surgery Date(Month/Year) Bilateral carpal tunnel release 7 Eye surgery as a child Plastic surgery on the left lower side o f face and jaw
--- OUTSIDE RECORDS SUMMARY | 2024-10-13 11:45 | XMS_ITS ---
Author Organization Servando Wesley MD Address [address] [place], [place] [id number] Care Team Providers Care Mains And Service Supervisor Name Role Phone Servando Wesley Primary Care Provider [phone] Results Component Value Reference Range Notes Complete Blood Count Auto Di ff (Not yet reviewed by provider) Interpretation: Performing Lab:[facility], [address] [place] [id number] Notes/Report: White Blood Count 9.6 4.8-10.8 X10*3/uL Red Blood Count 4.77 4.20-5.50 X10*6/uL Hemoglobin 13.2 12.0-16.0 g/dl Hematocrit 42.4 37.0-47.0 % Mean Corpuscular Volume 88.9 80.0-98.0 fL Mean Corpuscular Hemoglobin 27.7 27.0-33.0 pg Mean Corpuscular HGB Conc 31.1 31.0-35.0 g/dl Red Cell Distribution Width 13.8 11.0-16.0 % Platelet Count 528 160-400 X10*3/uL Mean Platelet Volume 9.4 9.4-12.3 fL Neutrophils Percent Auto 63.3 45-73 % Imm Gran Pct Auto 0.4 0.0-0.4 % Lymphocytes Percent Auto 23.2 20-40 % Monocytes Percent Auto 9.6 2-11 % Eosinophils Percent Auto 2.9 0-4 % Basophils Percent Auto 0.6 0-2 % NRBC Pct Auto 0.0 0.0-0.2 /100WBC Neutrophils Absolute Auto 6.1 2.0-8.3 x10*3/u L Imm Gran Abs Auto 0.04 0.00-0.03 X10*3/uL Lymphocytes Absolute Auto 2.2 1.2-4.9 X10*3/u L Monocytes Absolute Auto 0.9 0.1-1.2 X10*3/uL Eosinophils Absolute Auto 0.3 0.0-0.4 X10*3/u L Basophils Absolute Auto 0.1 0.0-0.2 X10*3/uL NRBC Abs Auto 0.000 0.0-0.012 X10*3/uL Comprehensive [place]. Panel Fa (Not yet reviewed by provider) Interpretation: Performing Lab:[address] [phone] Notes/Report: Sodium 139 135-145 mmol/L Potassium 4.4 3.3-5.1 mmol/L Chloride 107 96-108 mmol/L Carbon Dioxide 28 22-29 mmol/L Anion Gap 8 12-20 Blood Urea Nitrogen 13 9-16 mg/dL Creatinine 0.66 0.5-1.4 mg/dL Estimated Glomerular Filt Rate > 60 Chronic Kidney Disease: Estimated GFR < 60 mL/min/1.73m2 Severe Kidney Disease: Estimated GFR < 15 mL/min/1.73m2 Glucose Fasting 97 60-99 mg/dL Calcium 9.2 8.4-10.2 mg/dL Bilirubin Total 0.3 0.0-1.0 mg/dL Aspartate Amino Transferase 27 5-31 U/L Alanine Aminotransferase 20 0-31 U/L Total Protein 7.2 6.5-8.0 g/dL Albumin Level 3.9 3.5-5.0 g/dL Alkaline Phosphatase 83 39-117 U/L Lipid Panel (Not yet reviewe d by provider) Interpretation: Performing Lab:[address] [id number] Notes/Report: Triglycerides 50 <150 mg/dL Desirable Triglyceride: less than 150 mg/dL Borderline High Triglyceride 150-199 mg/dL High Triglyceride: 200-499 mg/dL Very High Triglyceride: greater than or equal to 5OO mg/dL Cholesterol 213 <200 mg/dL Desirable Cholesterol: less than 200 mg/dL Borderline High Cholesterol: 200-239 mg/dL High Cholesterol: greater than 239 mg/dL LDL Cholesterol Calculated 137 <100 mg/dL Desirable LDL: less than 100 mg/dL Near Optimal/Above Optimal LDL: 110-129 mg/dL Borderline High LDL: 130-159 mg/dL High LDL: 160-189 mg/dL Very High LDL: greater than or equal to 190 mg/dL HDL Cholesterol 66 >40 mg/dL Desirable HDL: greater than 40 mg/dL Note: This HDL assay may give artificially low results in patients with liver disease. Vitamin D 25-OH Total (Not y et reviewed by provider) Interpretation: Performing Lab:[address] [address] Notes/Report: Vitamin D 25-OH Total 16.1 >30 ng/mL Health Based Reference Values* < 20 ng/mL Deficient 20-30 ng/mL Insufficient > 30 ng/mL Sufficient *Navneet ARNOLD. N Engl J Med. 2007;357:266-280 There is no well-established upper level of normal vitamin D levels. Some laboratories use 50 ng/mL as an upper limit of normal. However, toxicity is patient-dependent and may occur at any level. Careful correlation with the patient's presentation is necessary and, if there is concern for vitamin D toxicity, treatment should be considered irrespective of the serum level. Care must be taken in interpreting Vitamin D results from different laboratories and methodologies. Published data demonstrated that results from patients undergoing hemodialysis may show a negative bias when tested with various automated 25-OH vitamin D assays when compared to LC-MS/MS. When testing samples from patients whose predominant form of Vitamin D is Vitamin D2, such as patients receiving Vitamin D2 supplementation, results that are subtherapeutic should be confirmed with another method such as LC-MS/MS. UA ClnCatch+Micro w/rflx Cul t (Not yet reviewed by provider) Interpretation: Performing Lab:[address] [place] [address] Notes/Report: Urine, Clean Catch Color Urine Yellow Appearance Urine Cloudy PH 5.5 5.0-9.0 Glucose Urine UA Negative Negative mg/dL Urine Blood Negative Negative Specific Elizabeth - Urine 1.020 1.005-1.025 Urine Protein Negative Neg-Trace mg/dL Urine Ketones Negative Negative mg/dL Nitrite Urine Negative Negative Leukocyte Esterase Urine Large (3+) Negative RBC Urine 0-2 0-2 /HPF WBC Urine 21-50 0-5 /HPF Squamous Epithelial Cell Urine 11-20 0-2 /HPF Bacteria Urine Trace None Seen Hyaline Casts Urine 0-2 0-2 /LPF REASON FOR VISIT FASTING LABS Encounters Encounter Location Date Provider Diagnosis Servando Wesley MD [address] [place] [address] [place] [phone] 10/13/2024 Servando Wesley Blood tests for routine general physical examination Z00.00 ; Lymphocytosis D72.820 and Vitamin D deficiency E55.9 Assessments Encounter Date Diagnosis (ICD Code) Assessment Notes Treatment Notes Treatment Clinical Notes Section Notes 10/13/2024 Blood tests for routine general physical examination (ICD-10 - Z00.00) 10/13/2024 Lymphocytosis (ICD-10 - D72.820) 10/13/2024 Vitamin D deficiency (ICD-10 - E55.9) Plan Of Treatment Pending Test Test Name Order Date Complete Blood Count Auto Diff 5 Comprehensive [place]. Panel Fast 5 Lipid Panel 10/13/2024 Vitamin D 25-OH Total 10/13/2024 UA ClnCatch+Micro w/rflx Cult 10/13/2024 Next Appt Details Provider Name:Servando Boswell ier, 10/20/2024 01:00:00 PM, [address] [place] [address], Suite [facility], [place], [place], [id number], Progress Notes * Italia COAVRRUBIAS:[birth year] (59 yo F)Acc No.[id number]:10/13/2024 Progress Note Patient:?Silva COVARRUBIAS Provider:?Servando Wesley MD :1965???Age:59 Y???Sex:Female D ate:10/13/2024 Address:[address] [place] [address] [place], [facility] Subjective: * Chief Complaints: * ???1. FASTING LABS. * Medical History:? Objective: * Vitals:? Assessment: * Assessment: 1.?Blood tests for routine g eneral physical examination - Z00.00 (Primary)???2.?Lymphocytosis - D72.820???3.?Vitamin D deficiency - E55.9??? Plan: * Treatment: 2.?Lymphocytosis?LAB: Complete Blood Count Auto Diff (Collection Date & Time - 10/13/2024 07:15 AM) ?LAB: [facility] [place]. Panel Fast (Collection Date & Time - 10/13/2024 07:15 AM) ?LAB: Lipid Panel (Collection Date & Time - 10/13/2024 07:15 AM) ?LAB: Vitamin D 25-OH Total (Collection Date & Time - 10/13/2024 07:15 AM) ?LAB: UA ClnCatch+Micro w/rflx Cult (Collection Date & Time - 10/13/2024 07:15 AM) 3.?Vitamin D deficiency?LAB: Complete Blood Count Auto Diff (Collection Date & Time - 10/13/2024 07:15 AM) ?LAB: [facility] [place]. Panel Fast (Collection Date & Time - 10/13/2024 07:15 AM) ?LAB: Lipid Panel (Collection Date & Time - 10/13/2024 07:15 AM) ?LAB: Vitamin D 25-OH Total (Collection Date & Time - 10/13/2024 07:15 AM) ?LAB: UA ClnCatch+Micro w/rflx Cult (Collection Date & Time - 10/13/2024 07:15 AM) * Procedure Codes:?74667 VENIP UNCT, ROUTINE* * * The named appointment provid er may or may not be the originator of this progress note, and it is not deemed complete until electronically signed by the appointment provider. Sign off status: Pending * Provider:?Servando Wesley MD Date:?0 10/13/2024 Generated for Emir campos/Maira/Liliaitting on:?10/13/2024 11:45 AM EDT
--- OUTSIDE RECORDS SUMMARY | 2024-10-13 11:45 | XMS_ITS ---
Author Organization Servando Wesley MD Address [address] [place] [phone] Care Team Providers Care Geotechnical Operating Engineer Name Role Phone Servando Wesley Primary Care Provider REASON FOR VISIT annual visit Encounters Encounter Location Date Provider Diagnosis Servando Wesley MD [address] [place] [phone] 10/09/2024 Servando Wesley Plan Of Treatment Next Appt Details Provider Name:Servando Boswell ier, 10/20/2024 01:00:00 PM, [address], [address], [place], [place], [phone], Progress Notes * Leanna COVARRUBIASB:[birth year] (59 yo F)Acc No.[id number]:10/09/2024 Progress Notes Patient:?Silva COVARRUBIAS Provider:?Servando Wesley MD :1965???Age:59 Y???Sex:Female D ate:10/09/2024 Address:[address], [place] Subjective: * Chief Complaints: * ???1. Annual visit. * HPI: ???Symptom(s):? patient is a 59 yo female here for annual visit with review of recent labs and follow up of chronic issues. ???Depression Screening:?PHQ-9?Thoughts that you would be better off or of hurting yourself in some way?Not at all,?Total Score?0.?Interpretation and Intervention?Depression Screening Findings?Negative,?Follow-Up for Depression?: review of PHQ-9 found negative result, no follow-up needed.? * Medical History:? Objective: * Vitals:? Assessment: Plan: * Treatment: * Preventive Medicine:? ??Counseling:?Care goal follow-up plan:?Counseling for abnormal BMI provided?Yes,?Above Normal BMI Follow-up?Giving encouragement to exercise.? * * The named appointment provid er may or may not be the originator of this progress note, and it is not deemed complete until electronically signed by the appointment provider. Sign off status: Pending * Provider:?Sevrando Wesley MD Date:?0 10/09/2024 Generated for Emir campos/Maira/Liliaitting on:?10/13/2024 11:45 AM EDT History and Physical Notes * HPI (History of Present Illness) Category Sub-Category Detail Notes Category Not es Symptom(s) patient is a 59 yo female here for annual visit with review of recent labs and follow up of chronic issues. Depression Screening PHQ-9 Little inte rest or pleasure in doing things: Not at all Feeling down, depressed, or hopeless: No t at all Trouble falling or staying asleep, or sl eeping too much: Not at all Feeling tired or having little energy: N ot at all Poor appetite or overeating: Not at all Feeling bad about yourself o r that you are a failure, or have let yourself or your family down: Not at all Trouble concentrating on thi ngs, such as reading the newspaper or watching television: Not at all Moving or speaking so slowly that other people could have noticed; or the opposite, being so fidgety or restless that you have been moving around a lot more than usual: Not at all Thoughts that you would be b mario off or of hurting yourself in some way: Not at all Total Score: 0 Interpretation and Intervention Depression Artemio hopper Findings: Negative Follow-Up for Depression: : review of Q-9 found negative result, no follow-up needed
--- OUTSIDE RECORDS SUMMARY | 2024-10-13 11:45 | XMS_ITS ---
Author Organization [facility] Address [address] [place] [address] Care Team Providers Care Manager Massage Department Name Role Phone Suki BISHOP, Ronnie Primary Care Provider Unavailab Yash Montero [facility] [phone] REASON FOR VISIT Patient presents today for hematemesis Encounters Encounter Location Date Provider Diagnosis [facility] [address] [place] [address] 10/06/2024 Yash Wilson Plan Of Treatment No Information Progress Notes * HEDY ROBLESADOB:[birth year] (59 yo F)Acc No.[id number]:10/06/2024 Progress Notes Patient:?ALESSANDRA ROBLES Provider:?Yash Wilson MD :1965???Age:59 Y???Sex:Female D ate:10/06/2024 Address:[address] [facility] [facility], [place] Pcp:Ronnie Cohn MD Subjective: * Chief Complaints: * ???1. Patient presents today for hematemesis. * Medical History:? Objective: * Vitals:? Assessment: Plan: * Treatment: * * The named appointment provid er may or may not be the originator of this progress note, and it is not deemed complete until electronically signed by the appointment provider. Sign off status: Pending * Provider:?Yash Wilson MD Date:? 025 Generated for Cadeni beth/Fashreyag/eTransmitting on:?10/13/2024 11:44 AM EDT
--- OUTSIDE RECORDS SUMMARY | 2024-10-13 11:45 | XMS_ITS ---
Author Organization Servando Wesley MD Address [address] [place] [phone] Care Team Providers Care Emergency Management Specialist Name Role Phone Servando Wesley Primary Care Provider REASON FOR VISIT yearly fasting labs Encounters Encounter Location Date Provider Diagnosis Servando Wesley MD [address] [place] [phone] 10/05/2024 Servando Wesley Blood tests for routine general physical examination Z00.00 ; Lymphocytosis D72.820 and Vitamin D deficiency E55.9 Assessments Encounter Date Diagnosis (ICD Code) Assessment Notes Treatment Notes Treatment Clinical Notes Section Notes 10/05/2024 Blood tests for routine general physical examination (ICD-10 - Z00.00) 10/05/2024 Lymphocytosis (ICD-10 - D72.820) 10/05/2024 Vitamin D deficiency (ICD-10 - E55.9) Plan Of Treatment Pending Test Test Name Order Date Complete Blood Count Auto Diff Comprehensive [place]. Panel Fast Lipid Panel 10/05/2024 Vitamin D 25-OH Total 10/05/2024 UA ClnCatch+Micro w/rflx Cult 10/05/2024 Next Appt Details Provider Name:Servando Boswell ier, 10/20/2024 01:00:00 PM, [address] [facility], [address], [place], [place], [phone], Progress Notes * Nomi COVARRUBIASaDOB:[birth year] (59 yo F)Acc No.[id number]:10/05/2024 Progress Note Patient:?Silva COVARRUBIAS Provider:?Servando Wesley MD :1965???Age:59 Y???Sex:Female D ate:10/05/2024 Address:[address] [place], [place] [phone] Subjective: * Chief Complaints: * ???1. Yearly fasting labs. * Medical History:? Objective: * Vitals:? Assessment: * Assessment: 1.?Blood tests for routine g eneral physical examination - Z00.00 (Primary)???2.?Lymphocytosis - D72.820???3.?Vitamin D deficiency - E55.9??? Plan: * Treatment: 2.?Lymphocytosis?LAB: Complete Blood Count Auto Diff ?LAB: Comprehensive [place]. Panel Fast ?LAB: Lipid Panel ?LAB: Vitamin D 25-OH Total ?LAB: UA ClnCatch+Micro w/rflx Cult 3.?Vitamin D deficiency?LAB: Complete Blood Count Auto Diff ?LAB: Comprehensive [place]. Panel Fast ?LAB: Lipid Panel ?LAB: Vitamin D 25-OH Total ?LAB: UA ClnCatch+Micro w/rflx Cult * * The named appointment provid er may or may not be the originator of this progress note, and it is not deemed complete until electronically signed by the appointment provider. Sign off status: Pending * Provider:?Servando Wesley MD Date:?0 10/05/2024 Generated for Emir campos/Maira/eTransmitting on:?10/13/2024 11:44 AM EDT
--- OUTSIDE RECORDS SUMMARY | 2024-10-13 11:45 | XMS_ITS | Patient Health Record ---
Author Organization Servando Wesley MD Address [address] [place], [place] [phone] Care Team Providers Care Deckhand Tuna Boat Name Role Phone Servando Wesley Primary Care Provider [phone] Allergies No Known Allergies Results Component Value Reference Range Notes Complete Blood Count Auto Di ff (Not yet reviewed by provider) Interpretation: Performing Lab:[facility], [address] [place] [id number] Notes/Report: White Blood Count 9.6 4.8-10.8 X10*3/uL [...] NRBC Abs Auto 0.000 0.0-0.012 X10*3/uL Comprehensive [place]. Panel Fa (Not yet reviewed by provider) Interpretation: Performing Lab:[address] [phone] Notes/Report: Sodium 139 135-145 mmol/L Potassium 4.4 [...] yet reviewe d by provider) Interpretation: Performing Lab:[facility] [address] [address] Notes/Report: Triglycerides 50 <150 mg/dL Desirable Triglyceride: [...] y et reviewed by provider) Interpretation: Performing Lab:[address] [phone] Notes/Report: Vitamin D 25-OH Total 16.1 >30 [...] (Not yet reviewed by provider) Interpretation: Performing Lab:[address] [place] [address] Notes/Report: Urine, Clean Catch Color Urine Yellow Appearance Urine Cloudy PH 5.5 5.0-9.0 Glucose Urine UA Negative Negative mg/dL Urine Blood Negative Negative Specific [place] - Urine 1.020 1.005-1.025 Urine Protein Negative Neg-Trace mg/dL Urine Ketones Negative Negative mg/dL Nitrite Urine Negative Negative Leukocyte Esterase Urine Large (3+) Negative RBC Urine 0-2 0-2 /HPF WBC Urine 21-50 0-5 /HPF Squamous Epithelial Cell Urine 11-20 0-2 /HPF Bacteria Urine Trace None Seen Hyaline Casts Urine 0-2 0-2 /LPF Reason For Referral Reason Lumbar disc disease please eval and treat Diagnosis 1 Lumbar disc disease with radiculopathy (M51.16) Referral Organization Servando Wesley MD Referring Provider First Name Servando Referring Provider Last Name Lupillo Referring Provider Speciality Internal M edicine Referred Provider [facility] Referred Provider Specialty Physical Med icine General Notes Alessandra Rios 0 08/07/2024 12:05:53 PM >info faxed, Aelssandra Rios 09/10/2024 03:00:30 PM >referral info mailed Referral Priority Routine Referral Appointment Date 09/22/2024 Medications Medication SIG (Take, Route, Frequency, Duration) Notes Start Date End Date Status Methadone HCl 5 MG/5ML Orally 27mg orall y Once a day Active Aleve 220 MG 1 tablet with food o r milk as needed Orally every 12 hrs Active dexAMETHasone 4 MG 1 tablet Orally thre e times a day for 7 days 07/23/2024 Active Imvexxy 10 MCG 1 _insert Vaginal Tw o times a Week for 30 day(s) Active Cyclobenzaprine HCl 5 MG 1 tablet at bed time as needed Orally twice a day for 10 days 07/23/2024 Active Omeprazole 40 MG 1 capsule 30 minutes before morning meal Orally Once a day for 30 day(s) 09/10/2023 Not-Taking Immunizations Vaccine Route Administration Date Status Comme nts Fluarix Quadrivalent IM Intramuscular 04/22/2018 Administe red PPSV23 (Pnemovax) IM Intramuscular 09/23/2018 Administered Fluarix Quadrivalent IM Intramuscular 05/19/2019 Administe red Fluarix Quadrivalent IM Intramuscular 04/08/2020 Administe red SARS-COV-2 Moderna Unknown 07/29/2020 Administered SARS-COV-2 Moderna Unknown 08/26/2020 Administered Fluarix Quadrivalent IM Intramuscular 06/09/2021 Administe red SARS-COV-2 Moderna Unknown 06/23/2021 Administered Social History Tobacco Use: Social History Observation Description Date Details (start date - stop date) Current Smoker NA - NA Tobacco Use/Smoking Question Answer Notes Patient is a current smoker How often do you smoke cigarettes? every day How many cigarettes a day do you smoke? 6-10 How soon after you wake up d o you smoke your first cigarette? within 5 minutes Are you interested in quitting? Thinking about q uitting Additional Findings: Tobacco User Curren t cigarette smoker, not currently using another form of tobacco Additional Findings: Tobacco Non-User Fo rmer smoker, currently using no form of tobacco Alcohol Screen Question Answer Notes Did you have a drink containing alcohol in the p ast year? No Points 0 Interpretation Negative Section Notes: Patient vapes. Patient vapes. Patient vapes. Patient vapes 5 times a day Patient vapes 5 times a day Patient vapes 5 times a day Patient vapes 5 times a day Patient vapes 5 times a day Problems Problem Type SNOMED Code ICD Code Onset Dates Problem Status W/U Status Risk Notes Problem 17657636 Lymphocytosis (D72.820) Active confirmed Problem 096415766 Tubular adenoma (D36.9) Active confirmed Problem 75449356 Vitamin D deficiency (E55.9) Active confirmed Problem 727824399 Diverticulitis (K57.92) Active confirmed Problem 16741176 Kidney stone (N20.0) Active confirmed Problem 274221009 History of alcoh ol abuse (Z87.898) Active confirmed Problem 73146677862803 History of hepatitis C (Z86.19) Active confirmed Problem 71364737 Current smoker (F17.200) Active confirmed Problem 734374262018552 Sciatica of left side (M54.32) Active confirmed Problem 407884268 Leukocytosis, unspecified type (D72.829) Active confirmed Problem 92006077 Dysthymia (F34.1) Active confirmed Problem 49620358 Sciatica of righ t side (M54.31) Active confirmed Problem 392268451 Arthritis of kne e (M17.10) Active confirmed Problem 870543513036597 History of opioi d abuse (Z87.898) Active confirmed Vital Signs Blood pressure diastolic 80 mm Hg 07/31/2024 eloise ght is up 7 pounds since 07-23-24 Height 61.5 in 07/31/2024 weight is up 7 pounds since 07-23-24 Blood pressure systolic 152 mm Hg 07/31/2024 weig ht is up 7 pounds since 07-23-24 Weight 152 lbs 07/31/2024 weight is up 7 pounds since 07-23-24 BMI 28.25 kg/m2 07/31/2024 weight is up 7 pounds since 07-23-24 Encounters Encounter Location Date Provider Diagnosis Servando Wesley MD [address] [place] [id number] 10/13/2024 Servando Wesley Blood tests for routine general physical examination Z00.00 ; Lymphocytosis D72.820 and Vitamin D deficiency E55.9 Servando Wesley MD [address] [place] [id number] 07/23/2024 Servando Wesley Sciatica of left santos e M54.32 Servando Wesley MD [address] [place] [id number] 07/31/2024 Servando Wesley Lumbar disc disease with radiculopathy M51.16 Servando Wesley MD [address] [place] [id number] 03/17/2024 Servando Wesley MD [address] [place] [id number] 04/21/2024 Servando Wesley Assessments Encounter Date Diagnosis (ICD Code) Assessment Notes Treatment Notes Treatment Clinical Notes Section Notes 10/13/2024 Blood tests for routine general physical examination (ICD-10 - Z00.00) 07/23/2024 Sciatica of left side (ICD-10 - M54.32) patient verbalized understanding of medication and directions for use. appt with [facility] / REFERRAL WILL BE MADE WHEN PATIENT PROVIDES HER INSURANCE INFO, SHE IS SUPPOSE TO CALL BACK TODAY WITH INFO 07/31/2024 Lumbar disc disease with radiculopathy (ICD-10 - M51.16) referral to [facility] 10/13/2024 Lymphocytosis (ICD-10 - D72.820) 10/13/2024 Vitamin D deficiency (ICD-10 - E55.9) Plan Of Treatment Pending Test Test Name Order Date Electrocardiogram (EKG) 06/20/2018 CT ABD & PELVIS WITH CONTRAST 02/28/2021 XR GI SERIES 10/04/2023 Complete Blood Count Auto Diff Comprehensive [place]. Panel Fast 5 Lipid Panel 10/13/2024 Vitamin D 25-OH Total 10/13/2024 CT abdomen pelvis wo con 09/10/2023 XR DEXA axial skeleton 01/15/2022 UA ClnCatch+Micro w/rflx Cult 10/13/2024 Next Appt Details Provider Name:Servando Boswell ier, 10/20/2024 01:00:00 PM, [address] [place] [address], [address], [place], [place], [phone], Insurance Providers Payer Name Payer Address Payer Phone Subscriber Number Group Number Insured Name Patient Relationship to Insured Coverage Start Date Coverage End Date [facility] [address] [address] [place] [phone] [id number] Silva Jacob Self - patient is the insured Medical (General) History Medical History History ICD Code carpal tunnel surgery Dr Flores over 30 pack year history Colonoscopy done 04/27/[address] Wilson - repeat due 5 years: Colonoscopy 02/27 repeat 5 years Hx of hepatitis C HX of lymphocytosis
--- OUTSIDE RECORDS SUMMARY | 2024-10-13 11:45 | XMS_ITS ---
Author Organization [facility] Address [address] [place] [address] Care Team Providers Care Floor Mechanic Name Role Phone Suki BISHOP, Ronnie Primary Care Provider Unavailab Yash Montero Unavailable [phone] REASON FOR VISIT no call/no show Encounters Encounter Location Date Provider Diagnosis [facility] [address] [place] [phone] 10/06/2024 Yash Wilson Plan Of Treatment No Information Progress Notes * PING ROBLESB:[birth year] (59 yo F)Acc No.[id number]:10/06/2024 Patient:?ZENAIDAHEDY CAINA :1965???Age:59 Y???Sex:Female Address[address], [place], [address] * * Date:?
--- OUTSIDE RECORDS SUMMARY | 2024-10-13 11:46 | XMS_ITS ---
Author Organization [facility] Address [address] [place] [address] Care Team Providers Care Assistant Import Manager Name Role Phone Suki BISHOP, Ronnie Primary Care Provider Unavailab Yash Montero Unavailable [phone] REASON FOR VISIT Patient presents today for HEMATEMESIS Medications Medication SIG (Take, Route, Fr equency, Duration) Notes Start Date End Date Status Multivitamin Adults - as directed Orally once a day Active Methadone HCl 10 MG 12 mg Orally Once a day Active Aspir-81 Active Ibuprofen Active Encounters Encounter Location Date Provider Diagnosis [facility] [address] [place] [phone] 05/27/2024 Yash Wilson Plan Of Treatment No Information Progress Notes * HEDY ROBLESMARVINB:[birth year] (59 yo F)Acc No.[id number]:05/27/2024 Progress Notes Patient:?RAVIFRANKOALESSANDRA CAIN Provider:?Yash Wilson MD :1965???Age:59 Y???Sex:Female D ate:05/27/2024 Address:[address], [place] Pcp:Ronnie Cohn MD Subjective: * Chief Complaints: * ???1. Patient presents today for HEMATEMESIS. * Medical History:? * Medications:?Taking Methadon e HCl 10 MG Tablet 12 mg Orally Once a day , Taking Multivitamin Adults - Tablet as directed Orally once a day , Taking Ibuprofen , Taking Aspir-81 Objective: * Vitals:? Assessment: Plan: * Treatment: * * The named appointment provid er may or may not be the originator of this progress note, and it is not deemed complete until electronically signed by the appointment provider. Sign off status: Pending * Provider:?Yash Wilson MD Date:? 024 Generated for Emir campos/Maira/Benito on:?10/13/2024 11:45 AM EDT
== END 2024-10-13 10:05 | disposition home or self-care (01) ==
LOC: HO.LNP 10:04
PROVIDERS: Visit Provider Internal Medicine
DX: Z00.00 Encounter for general adult medical examination without abnormal findings (principal); E55.9 Vitamin D deficiency, unspecified; D72.820 Lymphocytosis (symptomatic)
CPT/HCPCS: 80053; 80061; 81001; 82306; 85025; 87086

== ENCOUNTER 2024-11-24 15:37 | Outpatient (REF) | payer OTHER, SELFPAY ==
--- NOTE | ~2024-11-24 | US_ITS ---
EXAMINATION: US TRIPLEX LOWER EXTREMITY, BILATERAL CLINICAL INFORMATION: Bilateral lower extremity edema. COMPARISON: None available. TECHNIQUE: Color-flow triplex imaging with spectral analysis and compression Doppler were performed on the bilateral lower extremities. FINDINGS: Respiratory variation, normal compression and augmented flow are noted throughout the bilateral lower extremities. The visualized common femoral vein, superficial femoral vein, profunda femoral vein, popliteal vein and midcalf peroneal and posterior tibial venous segments show no evidence of deep venous thrombosis bilaterally. There is no Liriano's cyst. There are reactive appearing lymph nodes in the inguinal regions. US/US venous duplex LE BI IMPRESSION: No evidence of deep venous thrombosis involving the bilateral lower extremities. Electronically signed by: Juan A Florez MD 11/24/2024 04:10 PM EDT
--- OUTSIDE RECORDS SUMMARY | 2024-11-24 16:36 | XMS_ITS ---
Author Organization Servando Wesley MD Address [address] [place] [phone] Care Team Providers Care Glaze Mixer Name Role Phone Servando Wesley Primary Care Provider REASON FOR VISIT ANNUAL EXAM, cx colonoscopy X2, 2 NS office visits and 2 CX office visits with Dr. Wilson Encounters Encounter Location Date Provider Diagnosis Servando Wesley MD [address] [place] [address] [address] [place] [phone] 11/06/2024 Servando Wesley Plan Of Treatment Next Appt Details Provider Name:Servando dash, 11/26/2024 10:30:00 AM, [address] [place] [address], [address] [place] [address], [phone], Provider Name:Servando dahs, 11/19/2025 08:00:00 AM, [address] [place] [address], [address], [phone], Provider Name:Servando dash, 11/26/2025 02:30:00 PM, [address] [place] [address], [address], [phone], Progress Notes * Nomi COVARRUBIASaDOB:[birth year] (59 yo F)Acc No.[id number]:11/06/2024 Progress Notes Patient:Silva MARTIN Provider:?Servando Wesley MD :1965???Age:59 Y???Sex:Female D ate:11/06/2024 Address:[address] [place], [place] [phone] Subjective: * Chief Complaints: * ???1. ANNUAL EXAM. 2. cx col onoscopy X2, 2 NS office visits and [address] CX office visits [address] Wilson. * HPI: ???Symptom(s):? patientis a 59 yo female here for annual visit with review of recent labs and follow up of chronic issues. * Medical History:? Objective: * Vitals:? Assessment: Plan: * Treatment: * * The named appointment provid er may or may not be the originator of this progress note, and it is not deemed complete until electronically signed by the appointment provider. Sign off status: Pending * Provider:?Servando Wesley MD Date:?0 11/06/2024 Generated for Emir campos/Maira/Liliaitting on:?11/24/2024 04:36 PM EDT History and Physical Notes * HPI (History of Present Illness) Category Sub-Category Detail Notes Category Not es Symptom(s) patientis a 59 yo female here for annual visit with review of recent labs and follow up of chronic issues.
--- OUTSIDE RECORDS SUMMARY | 2024-11-24 16:36 | XMS_ITS | Patient Health Record ---
Author Organization [facility] Address [address] [place] [address] Care Team Providers Care Electrical Timing Device Calibrator Name Role Phone Servnado Hodges MD Primary Care Provider Yash Mohr Unavailable [phone] Allergies No Known Allergies Reason For Referral Referring Provider First Name Ronnie Referring Provider Last Name Suki Referring Provider Speciality Internal M edicine Referred Organization [facility] Referred Provider Yash Wilson Referred Address [address] [facility],[place], [place],[address] Referred Provider Specialty Gastroentero logy General Notes Fernanda Pedraza 024 10:01:40 AM EDT > SPOKE WITH PT AND NOTIFIED HER THAT I DO NOT BELIEVE DR [facility]ODGES [facility] SHE WILL CHECK AND CALL ME BACK [...] Problem Status W/U Status Risk Notes Problem 228715467 Encounter for screening for malignant neoplasm of colon (Z12.11) Active confirmed Problem 489354446 History of adenomatous polyp of colon (Z86.010) Active confirmed Problem History of polyp of colon (338984881) Personal history of colonic polyps (Z86.010) Active confirmed Problem 593553719 Chronic hepatiti s C without hepatic coma (B18.2) Active confirmed Problem 25423974 Chronic hepatiti s (K73.9) Active confirmed Problem History of colon polyps (Z86.010) Active confirmed Problem History of hepatitis C (04925786788410) History of hepatitis C (Z86.19) Active confirmed Problem Diverticulosis of colon (676911681) Diverticulosis of colon (K57.30) Active confirmed Encounters Encounter Location Date Provider Diagnosis [facility] [address] [place] [phone] 01/21/2024 Yash Wilson [facility] [address] [place] [phone] 05/27/2024 Yash Wilson [facility] [address] [place] [phone] 10/06/2024 Yash Wilson Plan Of Treatment Pending Test Test Name Order Date LIVER PROFILE 06/07/2021 LIVER PROFILE 12/01/2019 LIVER PROFILE 04/27/2020 LIVER PROFILE 10/05/2019 LIVER PROFILE 08/07/2019 CBC w DIFF 08/07/2019 CBC w DIFF 06/07/2021 CBC w DIFF 12/01/2019 CBC w DIFF 04/27/2020 CBC w DIFF 10/05/2019 PROTHROMBIN TIME (PT, INR) 06/07/2021 ALPHA-FETOPROTEIN,TUMOR MARKER 12/01/202 1 HEPATITIS C VIRAL LOAD 08/07/2019 HEPATITIS C VIRAL LOAD 12/01/2019 HEPATITIS C VIRAL LOAD 04/27/2020 HEPATITIS C VIRAL LOAD 10/05/2019 HEPATITIS C VIRAL LOAD 06/07/2021 US ABD 12/20/2021 HCV LIVER FIBROSIS, FIBRO TEST 1 HCVVL REFLEX GENOTYPE REFLEX NS5A 2018 US ABDOMEN COMP WITH ELASTOGRAPHY 2020 Future Test Test Name Order Date COLONOSCOPY 08/21/2018 COLONOSCOPY 12/20/2021 Insurance Providers Payer Name Payer Address Payer Phone Subscriber Number Group Number Insured Name Patient Relationship to Insured Coverage Start Date Coverage End Date [facility] [address] [address] [place], [place] [phone] [id number] ALESSANDRA OROZCO Self - patient is the insured [place] [employer] [address] [place] [address] [id number] ALESSANDRA OROZCO Self - patient is the insured Medical (General) History Medical History History ICD Code Denies AL,DM,CVA,Lung disease,renal dise ase Reports Hepatitis C treatmen [...]
--- OUTSIDE RECORDS SUMMARY | 2024-11-24 16:36 | XMS_ITS | Patient Health Record ---
Author Organization Servando Wesley MD Address [address] [place], [place] [id number] Care Team Providers Care Official Court Interpreter Name Role Phone Servando Wesley Primary Care Provider Allergies No Known Allergies Results Component Value Reference Range Notes Complete Blood Count Auto Di ff Reviewed date:10/13/2024 12:33:56 PM Interpretation: Performing Lab:[facility], [address] [place] [phone] Notes/Report: White Blood Count 9.6 4.8-10.8 X10*3/uL [...] 0.0-0.2 /100WBC Neutrophils Absolute Auto 6.1 2.0-8.3 x10*3/uL Imm Gran Abs Auto 0.04 0.00-0.03 X10*3/uL Lymphocytes Absolute Auto 2.2 1.2-4.9 X10*3/uL Monocytes Absolute Auto 0.9 0.1-1.2 X10*3/uL Eosinophils Absolute Auto 0.3 0.0-0.4 X10*3/uL Basophils Absolute Auto 0.1 0.0-0.2 X10*3/uL NRBC Abs Auto 0.000 0.0-0.012 X10*3/uL Comprehensive [place]. Panel Fa st Reviewed date:10/13/2024 12:35:37 PM Interpretation: Performing Lab:[facility], [address] [place] [phone] Notes/Report: Sodium 139 135-145 mmol/L Potassium 4.4 [...] Alkaline Phosphatase 83 39-117 U/L Lipid Panel Reviewed date:10/13/2024 12:10:54 PM Interpretation: Performing Lab:[facility], [address] [place] [phone] Notes/Report: Triglycerides 50 <150 mg/dL Desirable Triglyceride: [...] with liver disease. Vitamin D 25-OH Total Reviewed date:10/13/2024 12:33:19 PM Interpretation: Performing Lab:[facility], [address] [place] [phone] Notes/Report: Vitamin D 25-OH Total 16.1 >30 [...] as LC-MS/MS. UA ClnCatch+Micro w/rflx Cul t Reviewed date:10/13/2024 12:33:08 PM Interpretation: Performing Lab:[facility], [address] [place] [phone] Notes/Report: Urine, Clean Catch Color Urine Yellow Appearance Urine Cloudy PH 5.5 5.0-9.0 Glucose Urine UA Negative Negative mg/dL Urine Blood Negative Negative Specific [place] - Urine 1.020 1.005-1.025 Urine Protein Negative Neg-Trace mg/dL Urine Ketones Negative Negative mg/dL Nitrite Urine Negative Negative Leukocyte Esterase Urine Large (3+) Negative RBC Urine 0-2 0-2 /HPF WBC Urine 21-50 0-5 /HPF Squamous Epithelial Cell Urine 11-20 0-2 /HPF Bacteria Urine Trace None Seen Hyaline Casts Urine 0-2 0-2 /LPF Urine Culture Reviewed date:10/15/2024 06:44:59 PM Interpretation: Performing Lab:[facility], [address] [place] [phone] Notes/Report: Urine Culture Report Result Urine Culture 10,000 to 50,000 cfu/ml Urine Culture Mixed bacterial nadeen a characteristic of Urine Culture urogenital contamination. US venous duplex LE BI (Not yet reviewed by provider) Interpretation: Performing Lab: Notes/Report: [facility] [address] [place] [address] Ultrasound Report Signed Patient: Silva Covarrubias MR#: [id number] 861 : 1965 Acct:[id number] Age/Sex: 59 / F ADM Date: 11/24/24 [facility] Attending Dr: Servando Wesley MD Ordering Physician: Servando Wesley MD Date of Service: 11/24/24 Procedure(s): US venous duplex LE BI Accession Number(s): [id number] cc: Servando Wesley MD EXAMINATION: US TRIPLEX LOWER EXTREMITY, BILATERAL CLINICAL INFORMATION: Bilateral lower extremity edema. COMPARISON: None available. TECHNIQUE: Color-flow triplex imaging with spectral analysis and compression Doppler were performed on the bilateral lower extremities. FINDINGS: Respiratory variation, normal compression and augmented flow are noted throughout the bilateral lower extremities. The visualized common femoral vein, superficial femoral vein, profunda femoral vein, popliteal vein and midcalf peroneal and posterior tibial venous segments show no evidence of deep venous thrombosis bilaterally. There is no Liriano's cyst. There are reactive appearing lymph nodes in the inguinal regions. US/US venous duplex LE BI IMPRESSION: No evidence of deep venous thrombosis involving the bilateral lower extremities. Electronically signed by: Juan A Florez MD 11/24/2024 04:10 PM EDT Dictated By: Juan A Florez MD Signed By: <Electronically signed by Juan A Florez MD in OV> 11/24/24 1610 DD/ 1547 TD/TT: 11/24/24 1604 Practice Administrator: [facility] [address] [place] [address] [place] [address] Ultrasound Report Signed Patient: Silva Covarrubias MR#: [id number] : 1965 Acct:[id number] Age/Sex: 59 / F ADM Date: 11/24/24 Loc: [facility] Attending Dr: Servando Wesley MD Ordering Physician: Servando Wesley MD Date of Service: 11/24/24 Procedure(s): US venous duplex LE BI Accession Number(s): [id number] cc: Servando Wesley MD EXAMINATION: US TRIPLEX LOWER EXTREMITY, BILATERAL CLINICAL INFORMATION: Bilateral lower extremity edema. COMPARISON: None available. TECHNIQUE: Color-flow triplex imaging with spectral analysis and compression Doppler were perform ed on the bilateral lower extremities. FINDINGS: Respiratory variatio n, normal compression and augmented flow are noted throughout the bilateral lower extremities. The visualized common femoral vein, superficial femoral vein, profunda femoral vein, popliteal vein and midcalf peroneal and posterior tibial venous segments show no evidence of deep venous thrombosis bilaterally. There is no Liriano's cyst. There are reactive appearing lymph nodes in the inguinal regions. US/US venous duplex LE BI IMPRESSION: No evidence of deep venous thrombosis involving the bilateral lower extremities. Electronically sara d by: Juan A Florez MD 11/24/2024 04:10 PM EDT RP Dictated By: Juan A Florez MD Signed By: <Electronically signed by Juan A Florez MD in OV> 11/24/24 1610 DD/ 1547 TD/TT: 11/24/24 1604 Practice Administrator: Reason For Referral Reason Lumbar disc disease please eval and treat Diagnosis 1 Lumbar disc disease with radiculopathy (M51.16) Referral Organization Servando Wesley MD Referring Provider First Name Servando Referring Provider Last Name Lupillo Referring Provider Speciality Internal M edicine Referred Provider [facility] Referred Provider Specialty Physical Med icine General Notes Alessandra Rios 0 08/07/2024 12:05:53 PM >info faxed, Alessandra Rios 09/10/2024 03:00:30 PM >referral info mailed Referral Priority Routine Referral Appointment Date 09/22/2024 Medications Medication SIG (Take, Route, Frequency, Duration) Notes Start Date End Date Status Methadone HCl 5 MG/5ML Orally 27mg orall y Once a day Active Imvexxy 10 MCG 1 _insert Vaginal Tw o times a Week for 30 day(s) Active Aleve 220 MG 1 tablet with food o r milk as needed Orally every 12 hrs Not-Taking dexAMETHasone 4 MG 1 tablet Orally thre e times a day for 7 days 07/23/2024 Not-Takin g Cyclobenzaprine HCl 5 MG 1 tablet at bed time as needed Orally twice a day for 10 days 07/23/2024 Not-Taking Omeprazole 40 MG 1 capsule 30 minutes [...] Points 0 Interpretation Negative Section Notes: Patient vapes 5 times a day Patient vapes. Patient vapes. Patient vapes. Patient vapes 5 times a day Patient vapes 5 times a day Patient vapes 5 times a day Patient vapes 5 times a day Patient vapes 5 times a day Problems Problem Type SNOMED Code ICD Code Onset Dates Problem Status W/U Status Risk Notes Problem 21894040 Lymphocytosis (D72.820) Active confirmed Problem 645976216 Tubular adenoma (D36.9) Active confirmed Problem 40306807 Vitamin D deficiency (E55.9) Active confirmed Problem 858104895 Diverticulitis (K57.92) Active confirmed Problem 67319249 Kidney stone (N20.0) Active confirmed Problem 081925605 History of alcoh ol abuse (Z87.898) Active confirmed Problem 06300222352999 History of hepatitis C (Z86.19) Active confirmed Problem 12403896 Current smoker (F17.200) Active confirmed Problem 313981048996895 Sciatica of left side (M54.32) Active confirmed Problem 726937714 Leukocytosis, unspecified type (D72.829) Active confirmed Problem 54255569 Dysthymia (F34.1) Active confirmed Problem 48921600 Sciatica of righ t side (M54.31) Active confirmed Problem 210834489 Arthritis of kne e (M17.10) Active confirmed Problem 454953528881067 History of opioi d abuse (Z87.898) Active confirmed Vital Signs Blood pressure diastolic 76 mm Hg 11/24/2024 eloise ght is up 11 pounds since 07-31-24 Height 61.5 in 11/24/2024 weight is up 11 pounds since 07-31-24 Blood pressure systolic 162 mm Hg 11/24/2024 weig ht is up 11 pounds since 07-31-24 Weight 163 lbs 11/24/2024 weight is up 11 pounds since 07-31-24 BMI 30.3 kg/m2 11/24/2024 weight is up 11 pounds since 07-31-24 Encounters Encounter Location Date Provider Diagnosis Servando Wesley MD [address] [place] [id number] 10/13/2024 Servando Wesley Blood tests for routine general physical examination Z00.00 ; Lymphocytosis D72.820 and Vitamin D deficiency E55.9 Servando Wesley MD [address] [place] [id number] 11/24/2024 Servando Wesley Annual physical exam Z00.00 ; Vitamin D deficiency E55.9 ; Leg edema R60.0 and Lymphocytosis D72.820 Servando Wesley MD [address] [place] [id number] 07/23/2024 Servando Wesley Sciatica of left santos e M54.32 Servando Wesley MD [address] [place] [id number] 07/31/2024 Servando Wesley Lumbar disc disease with radiculopathy M51.16 Servando Wesley MD [address] [place] [id number] 10/19/2024 Servando Wesley MD [address] [place] [id number] 03/17/2024 Servando Wesley MD [address] [place] [id number] 04/21/2024 Servando Wesley Assessments Encounter Date Diagnosis (ICD Code) Assessment Notes Treatment Notes Treatment Clinical Notes Section Notes 10/13/2024 Blood tests for routine general physical examination (ICD-10 - Z00.00) 11/24/2024 Annual physical exam (ICD-10 - Z00.00) labs reviewed and discussed with patient 11/24/2024 Vitamin D deficiency (ICD-10 - E55.9) to start vit d, will continue to monitor 07/23/2024 Sciatica of left side (ICD-10 - M54.32) patient verbalized understanding of medication and directions for use. appt with [facility] / REFERRAL WILL BE MADE WHEN PATIENT PROVIDES HER INSURANCE INFO, SHE IS SUPPOSE TO CALL BACK TODAY WITH INFO 07/31/2024 Lumbar disc disease with radiculopathy (ICD-10 - M51.16) referral to [facility] 10/13/2024 Lymphocytosis (ICD-10 - D72.820) 11/24/2024 Leg edema (ICD-10 - R60.0) pending diagnostic testing/ being done 11-24-24 3:30pm at [facility] site 10/13/2024 Vitamin D deficiency (ICD-10 - E55.9) 11/24/2024 Lymphocytosis (ICD-10 - D72.820) resolved, will continue to monitor Plan Of Treatment Pending Test Test Name Order Date Electrocardiogram (EKG) 06/20/2018 CT ABD & PELVIS WITH CONTRAST 02/28/2021 XR GI SERIES 10/04/2023 US LEG BILATERAL VENOUS DOPPLER 11/25/19 CT abdomen pelvis wo con 09/10/2023 XR DEXA axial skeleton 01/15/2022 US venous duplex LE BI 11/24/2024 Next Appt Details Provider Name:Servando Boswell ier, 11/26/2024 10:30:00 AM, [address] [place] [address], [address], [phone], Provider Name:Servando Boswell ier, 11/19/2025 08:00:00 AM, [address] [place] [address], [address], [phone], Provider Name:Servando Boswell ier, 11/26/2025 02:30:00 PM, [address] [place] [address], [address], [phone], Insurance Providers Payer Name Payer Address Payer Phone Subscriber Number Group Number Insured Name Patient Relationship to Insured Coverage Start Date Coverage End Date [facility] [address] [address] [place] [phone] [id number] Silva Jacob Self - patient is the insured Medical (General) History Medical History History ICD Code carpal tunnel surgery Dr Flores over 30 pack year history Colonoscopy done 04/27/[address] Wilson - repeat due 5 years: Colonoscopy 02/27 repeat 5 years Hx of hepatitis C HX of lymphocytosis
--- OUTSIDE RECORDS SUMMARY | 2024-11-24 16:36 | XMS_ITS ---
Author Organization [facility] Address [address] [place] [phone] Care Team Providers Care Communication Spec Name Role Phone Lupillo BISHOP, Servando Primary Care Provider Yash Mohr [phone] REASON FOR VISIT no call/no show Encounters Encounter Location Date Provider Diagnosis [facility] [address] [place] [phone] 10/06/2024 Yash Wilson Plan Of Treatment No Information Progress Notes * AUDELIAHEDY UlloaMARVINB:[birth year] (59 yo F)Acc No.[id number]:10/06/2024 Patient:?ALESSANDRA ROBLES :1965???Age:59 Y???Sex:Female Address:[address], [place], [address] * true * Date:? Generated for Printi ng/Faxing/eTransmitting on:?11/24/2024 04:35 PM EDT
--- OUTSIDE RECORDS SUMMARY | 2024-11-24 16:36 | XMS_ITS ---
Author Organization Servando Wesley MD Address [address] [place] [phone] Care Team Providers Care Wet Inspector Optical Glass Name Role Phone Servando Wesley Primary Care Provider Allergies No Known Allergies REASON FOR VISIT annual visit Medications Medication SIG (Take, Route, Frequency, Duration) Notes Start Date End Date Status Methadone HCl 5 MG/5ML Orally 27mg orall y Once a day Active Imvexxy 10 MCG 1 _insert Vaginal Tw o times a Week for 30 day(s) Active Aleve 220 MG 1 tablet with food o r milk as needed Orally every 12 hrs Not-Taking Cyclobenzaprine HCl 5 MG 1 tablet at bed time as needed Orally twice a day for 10 days 07/23/2024 Not-Taking Omeprazole 40 MG 1 capsule 30 minutes before morning meal Orally Once a day for 30 day(s) 09/10/2023 Not-Taking dexAMETHasone 4 MG 1 tablet Orally thre e times a day for 7 days 07/23/2024 Not-Takin g Social History Tobacco Use: Social History Observation [...] about q uitting Additional Findings: Tobacco User Huma t cigarette smoker, not currently using another form of tobacco Additional Findings: Tobacco Non-User Fo rmer smoker, currently using no form of tobacco Alcohol Screen Question Answer Notes Did you have a drink containing alcohol in the p ast year? No Points 0 Interpretation Negative Section Notes: Patient vapes 5 times a day Vital Signs Blood pressure systolic 162 mm Hg 11/25/19 Blood pressure diastolic 76 mm Hg 025 Height 61.5 in 11/24/2024 Weight 163 lbs 11/24/2024 BMI 30.3 kg/m2 11/24/2024 weight is up 11 pounds since 07-31-24 Encounters Encounter Location Date Provider Diagnosis Servando Wesley MD [address] [place] [address] [place] [phone] 11/24/2024 Servando Wesley Annual physical exam Z00.00 ; Vitamin D deficiency E55.9 ; Leg edema R60.0 and Lymphocytosis D72.820 Assessments Encounter Date Diagnosis (ICD Code) Assessment Notes Treatment Notes Treatment Clinical Notes Section Notes 11/24/2024 Annual physical exam (ICD-10 - Z00.00) labs reviewed and discussed with patient 11/24/2024 Vitamin D deficiency (ICD-10 - E55.9) to start vit d, will continue to monitor 11/24/2024 Leg edema (ICD-10 - R60.0) pending diagnostic testing/ being done 11-24-24 3:30pm at [facility] 11/24/2024 Lymphocytosis (ICD-10 - D72.820) resolved, will continue to monitor Plan Of Treatment Treatment Notes Assessment Notes Annual physical exam labs reviewed and d iscussed with patient Vitamin D deficiency to start vit d, alirio l continue to monitor Leg edema pending diagnostic t esting/ being done 11-24-24 3:30pm at [facility] Lymphocytosis resolved, will nicol nue to monitor Pending Test Test Name Order Date US LEG BILATERAL VENOUS DOPPLER 11/25/19 Next Appt Details Follow Up: after us, Reason: Provider Name:Servando Boswell hardy, 11/26/2024 10:30:00 AM, [address], [address], [place], [place], [phone], Provider Name:Servando Boswell hardy, 11/19/2025 08:00:00 AM, [address], [address], [place], [phone], Provider Name:Servando Boswell hardy, 11/26/2025 02:30:00 PM, [address], [address], [place], [phone], Progress Notes * AUDELIAArtemioLeannaB:[birth year] (59 yo F)Acc No.[id number]:11/24/2024 Progress Notes Patient:?ZENAIDASilva CAIN Provider:?Servando Wesley MD :1965???Age:59 Y???Sex:Female D ate:11/24/2024 Address:[address] [place], [place] [phone] Subjective: * Chief Complaints: * ???1. Annual visit. * HPI: ???Depression Screening:?PHQ-9?Little interest or pleasure in doing things?Not at all,?Feeling down, depressed, or hopeless?Not at all,?Trouble falling or staying asleep, or sleeping too much?Not at all,?Feeling tired or having little energy?Not at all,?Poor appetite or overeating?Not at all,?Feeling bad about yourself or that you are a failure, or have let yourself or your family down?Not at all,?Trouble concentrating on things, such as reading the newspaper or watching television?Not at all,?Moving or speaking so slowly that other people could have noticed; or the opposite, being so fidgety or restless that you have been moving around a lot more than usual?Not at all,?Thoughts that you would be better off or of hurting yourself in some way?Not at all,?Total Score?0.?Interpretation and Intervention?Depression Screening Findings?Negative,?Follow-Up for Depression?: review of PHQ-9 found negative result, no follow-up needed.? here for yearly evaluation. resigned from job in april. ???Communication Needs:?Communication Needs?Does the patient have a hearing impairment?No,?Does the patient have a vision impairment??Yes,?If yes, what is the vision impairment??Glasses,?Does the patient have a cognition impairment??No.?Fall Risk:?History?Have you had any falls with injury in the past year??Yes tripped over something in her room hit head on table 11-23-24 No Er Visit,?Have you had two or more falls in the past year??No.?SDOH Questions:?SDOH Questions?In the past year have you been worried about losing housing??No,?In the past year have you or any family members you live with been unable to get any of the following when it was really needed? Check all that apply:?None.?Symptom(s):? patient is a 59 yo female here for annual visit with review of recentl labs and follow up of chronic issues. * ROS:?General/Constitutional:?Change in appetite?denies.?Chills?denies.?Fever?denies.?Ophthalmologic:?Blurred vision?denies.?Discharge?denies.?Pain?denies.?ENT:?Decreased hearing?denies.?Sore throat?denies.?Swollen glands?denies.?Endocrine:?Cold intolerance?denies.?Excessive thirst?denies.?Heat intolerance?denies.?Weight loss?denies.?Respiratory:?Cough?denies.?Shortness of breath at rest?denies.?Shortness of breath with exertion?denies.?Wheezing?denies.?Cardiovascular:?Chest pain at rest?denies.?Chest pain with exertion?denies.?Irregular heartbeat?denies.?Shortness of breath?denies.?Gastrointestinal:?Abdominal pain?denies.?Change in bowel habits?denies.?Diarrhea?denies.?Nausea?denies.?Rectal bleeding?denies.?Vomiting?denies .?Genitourinary:?Blood in urine?denies.?Difficulty urinating?denies.?Frequent urination?denies.?Urinary incontinence?Denies.?Musculoskeletal:?Painful joints?denies.?Weakness?denies.?Skin:?Dry skin?denies.?Itching?denies.?Denies?Mole(s),? changes in moles, new moles or any lesions of concern.?Denies?Photosensitivity.?Rash?denies.?Neurologic:?Dizziness?denies.?Fainting?denies.?Headache?denies.?legs havebeen swollen for 6 weeks after she fell asleep with legs over side of bed. * Medical History:?carpal tunn el surgery Dr Flores, Over 30 pack year history, Colonoscopy done 04/27/[address] Wilson - repeat due 5 years: Colonoscopy 02/27 repeat 5 years, Hx of hepatitis C, HX of lymphocytosis. * Family History:?Father: dece ased 64 yrs.?Mother: 72 yrs, diagnosed with Cancer.?1 brother(s) , 1 sister(s) . .? Father-VT brother s Bipolar, No pertinent family medical history. * Social History:?Tobacco Use:?Tobacco Use/Smoking?Patient is a?current smoker,?How often do you smoke cigarettes??every day,?How many cigarettes a day do you smoke??6-10,?How soon after you wake up do you smoke your first cigarette??within 5 minutes,?Are you interested in quitting??Thinking about quitting,?Additional Findings: Tobacco User?Current cigarette smoker, not currently using another form of tobacco,?Additional Findings: Tobacco Non-User?Former smoker, currently using no form of tobacco.?Drugs/Alcohol:?Alcohol Screen?Did you have a drink containing alcohol in the past year??No,?Points?0,?Interpretation?Negative.?Miscellaneous:?Caffeine: yes, frequency:, 1-2 cups per day. Community involvements: yes. Exercise: yes, walks half hour 3 times a week. Home smoke detector use: yes. Living with: family. Marital status: single, . Pets: cats: dogs: 2 cats. Travel outside of the [place]: no. ???Patient vapes 5 times a day. * Medications:?Taking Methadon e HCl 5 MG/5ML Solution Orally 27mg orally Once a day , Taking Imvexxy 10 MCG _insert 1 _insert Vaginal Two times a Week , Not- Taking/PRN Aleve 220 MG Tablet 1 tablet with food or milk as needed Orally every 12 hrs , Not-Taking/PRN dexAMETHasone 4 MG Tablet 1 tablet Orally three times a day , Not-Taking/PRN Cyclobenzaprine HCl 5 MG Tablet 1 tablet at bedtime as needed Orally twice a day , Not-Taking/PRN Omeprazole 40 MG Capsule Delayed Release 1 capsule 30 minutes before morning meal Orally Once a day , Medication List reviewed and reconciled with the patient * Allergies:?N.K.D.A. Objective: * Vitals:?Ht: 61.5, Wt: 163, B VT:30.3, BP:162/76, Wt-k.94. weight is up 11 pounds since 07-31-24. * ???Past Orders: ???Lab:Urine Culture (Order Date - 10/13/2024) (Collection Date & Time - 10/13/2024) ? Value Reference Range ?Urine Culture urogenital contamination. - ???Lab:Complete Blood Count Auto Diff (Order Date - 10/13/2024) (Collection Date & Time - 10/13/2024 07:15 AM) ? Value Reference Range ?White Blood Count 9.6 4. 8-10.8 - X10*3/uL ?Red Blood Count 4.77 4.20 -5.50 - X10*6/uL ?Hemoglobin 13.2 12.0-16.0 - g/dl ?Hematocrit 42.4 37.0-47.0 - % ?Mean Corpuscular Volume 88.9 80.0-98.0 - fL ?Mean Corpuscular Hemoglobin 27.7 27.0-33.0 - pg ?Mean Corpuscular HGB Conc 31.1 31.0-35.0 - g/dl ?Red Cell Distribution Width 13.8 11.0-16.0 - % ?Platelet Count 528 H 160-4 00 - X10*3/uL ?Mean Platelet Volume 9.4 9.4-12.3 - fL ?Neutrophils Percent Auto 63.3 45-73 - % ?Imm Gran Pct Auto 0.4 0. 0-0.4 - % ?Lymphocytes Percent Auto 23.2 20-40 - % ?Monocytes Percent Auto 9.6 2-11 - % ?Eosinophils Percent Auto 2.9 0-4 - % ?Basophils Percent Auto 0.6 0-2 - % ?NRBC Pct Auto 0.0 0.0-0. 2 - /100WBC ?Neutrophils Absolute Auto 6.1 2.0-8.3 - x10*3/uL ?Imm Gran Abs Auto 0.04 H 0. 00-0.03 - X10*3/uL ?Lymphocytes Absolute Auto 2.2 1.2-4.9 - X10*3/uL ?Monocytes Absolute Auto 0.9 0.1-1.2 - X10*3/uL ?Eosinophils Absolute Auto 0.3 0.0-0.4 - X10*3/uL ?Basophils Absolute Auto 0.1 0.0-0.2 - X10*3/uL ?NRBC Abs Auto 0.000 0.0-0. 012 - X10*3/uL ???Lab:Comprehensive [place]. P david Fast (Order Date - 10/13/2024) (Collection Date & Time - 10/13/2024 07:15 AM) ? Value Reference Range ?Sodium 139 135-145 - mmo l/L ?Bilirubin Total 0.3 0.0- 1.0 - mg/dL ?Aspartate Amino Transferase 27 5-31 - U/L ?Alanine Aminotransferase 20 0-31 - U/L ?Total Protein 7.2 6.5-8. 0 - g/dL ?Albumin Level 3.9 3.5-5. 0 - g/dL ?Alkaline Phosphatase 83 39-117 - U/L ?Potassium 4.4 3.3-5.1 - mmol/L ?Chloride 107 96-108 - mm ol/L ?Carbon Dioxide 28 22-29 - mmol/L ?Anion Gap 8 L 12-20 - ?Blood Urea Nitrogen 13 9-16 - mg/dL ?Creatinine 0.66 0.5-1.4 - mg/dL ?Estimated Glomerular Filt Rate > 60 - ?Glucose Fasting 97 60-9 9 - mg/dL ?Calcium 9.2 8.4-10.2 - m g/dL ???Lab:Lipid Panel (Order Da te - 10/13/2024) (Collection Date & Time - 10/13/2024 07:15 AM) ? Value Reference Range ?Triglycerides 50 <150 - mg/dL ?Cholesterol 213 H <200 - m g/dL ?LDL Cholesterol Calculated 137 H <100 - mg/dL ?HDL Cholesterol 66 >40 - mg/dL ???Lab:Vitamin D 25-OH Total (Order Date - 10/13/2024) (Collection Date & Time - 10/13/2024 07:15 AM) ? Value Reference Range ?Vitamin D 25-OH Total 16.1 L >30 - ng/mL ???Lab:UA ClnCatch+Micro w/r flx Cult (Order Date - 10/13/2024) (Collection Date & Time - 10/13/2024 07:15 AM) ? Value Reference Range ?Color Urine Yellow - ?Appearance Urine Cloudy - ?PH 5.5 5.0-9.0 - ?Glucose Urine UA Negative Neg ative - mg/dL ?Urine Blood Negative Negative - ?Specific [place] - Urine 1.020 1.005-1.025 - ?Urine Protein Negative Neg-Tr balta - mg/dL ?Urine Ketones Negative Negati ve - mg/dL ?Nitrite Urine Negative Negati ve - ?Leukocyte Esterase Urine Large (3+) A Negative - ?RBC Urine 0-2 0-2 - /HPF ?WBC Urine 21-50 A 0-5 - /HPF ?Squamous Epithelial Cell Urine 11-20 0-2 - /HPF ?Bacteria Urine Trace None Seen - ?Hyaline Casts Urine 0-2 0-2 - /LPF * Examination: ???General Examination: ?GENERAL APPEARANCE:?well developed, well nourished, in no acute distress.?HEAD:?normocephalic, atraumatic.?EYES:?pupils equal, round, reactive to light and accommodation, sclera non-icteric.?EARS:?normal.?ORAL CAVITY:?mucosa moist.?THROAT:?clear.?NECK/THYROID:?neck supple, full range of motion, no cervical lymphadenopathy, no bruits.?SKIN:?warm and dry, no suspicious lesions.?HEART:?regular rate and rhythm, S1, S2 normal, no murmurs.?LUNGS:?clear to auscultation bilaterally.?BREASTS:?done by take off man.?ABDOMEN:?soft, nontender, nondistended, bowel sounds present, normal, no organomegaly , no masses palpable.?RECTAL EXAM:?done by take off man.?FEMALE GENITOURINARY:?done by take off man.?EXTREMITIES:?no clubbing, cyanosis, or edema/ both legs swollen and tight with erythema.?NEUROLOGIC:?nonfocal, motor strength normal upper and lower extremities, sensory exam intact.? Assessment: * Assessment: 1.?Annual physical exam - Z0 0.00 (Primary)???2.?Vitamin D deficiency - E55.9???3.?Leg edema - R60.0???4.?Lymphocytosis - D72.820??? Plan: * Treatment: 2.?Vitamin D deficiency? Notes: to start vit d, will continue to monitor?? 3.?Leg edema?Imaging: US LEG BILATERAL VENOUS DOPPLER Notes: pending diagnostic testing/ being done 11-24-24 3:[place]pm [place] [facility] [place] ?? 4.?Lymphocytosis? Notes: resolved, will continue to monitor?? * Preventive Medicine:? ??Counseling:?Care goal follow-up plan:?Counseling for abnormal BMI provided?Yes,?Above Normal BMI Follow-up?Giving encouragement to exercise.? * Follow Up:?after us * * The named appointment provid er may or may not be the originator of this progress note, and it is not deemed complete until electronically signed by the appointment provider. Sign off status: Pending * Provider:?Servando Wesley MD Date:?0 11/24/2024 Generated for Emir campos/Maira/eTransmitting on:?11/24/2024 04:36 PM EDT History and Physical Notes * HPI (History of Present Illness) Category Sub-Category Detail Notes Category Not es Symptom(s) patient is a 59 yo female here for annual visit with review of recentl labs and follow up of chronic issues. Depression Screening PHQ-9 Little inte rest or pleasure in doing things: Not at all here for yearly evaluation. resigned from job in april Feeling down, depressed, or hopeless: No t [...] Negative Follow-Up for Depression: : review of PH Q-9 found negative result, no follow-up needed SDOH Questions SDOH Questions In the past year have you been worried about losing housing?: No In the past year have you or any family members you live with been unable to get any of the following when it was really needed? Check all that apply:: None Fall Risk History Have you had any falls with injury in the past year?: Yes tripped over something in her room hit head on table 11-23-24 No Er Visit Have you had two or more falls in the year?: No Communication Needs Communication Needs Does the patient have a hearing impairment: No Does the patient have a vision impairmen t?: Yes ?If yes, what is the vision impairment?: Glasses Does the patient have a cognition impair ment?: No Examination Category Sub-Category Detail Notes Category Not es General Examination GENERAL APPEARANCE: well dev eloped, well nourished, in no acute distress HEAD: normocephalic, atrau matic EYES: pupils equal, round, reactive to light and accommodation, sclera non- icteric EARS: normal THROAT: clear NECK/THYROID: neck supple, full ra nge of motion, no cervical lymphadenopathy, no bruits HEART: regular rate and rhy thm, S1, S2 normal, no murmurs LUNGS: clear to auscultatio n bilaterally ABDOMEN: soft, nontender, non distended, bowel sounds present, normal, no organomegaly , no masses palpable NEUROLOGIC: nonfocal, motor stre ngth normal upper and lower extremities, sensory exam intact SKIN: warm and dry, no luis picious lesions EXTREMITIES: no clubbing, cyanosi s, or edema/ both legs swollen and tight with erythema BREASTS: done by take off man RECTAL EXAM: done by take off man FEMALE GENITOURINARY: done by take off man ORAL CAVITY: mucosa moist
--- OUTSIDE RECORDS SUMMARY | 2024-11-24 16:36 | XMS_ITS ---
Author Organization Servando Wesley MD Address [address] [place] [phone] Care Team Providers Care Hardboard Supervisor Name Role Phone Servando Wesley Primary Care Provider REASON FOR VISIT n/s's and Cancels Encounters Encounter Location Date Provider Diagnosis Servando Wesley MD [address] [facility] [address] [place] [phone] 10/19/2024 Servando Wesley Plan Of Treatment Next Appt Details Provider Name:Servando dash, 11/26/2024 10:30:00 AM, [address] [place] [address], [address] [place] [address], [phone], Provider Name:Servando dash, 11/19/2025 08:00:00 AM, [address] [place] [address], [address], [phone], Provider Name:Servando dash, 11/26/2025 02:30:00 PM, [address] [place] [address], [address], [phone], Progress Notes * Nomi COVARRUBIASaDOB:[birth year] (59 yo F)Acc No.[id number]:10/19/2024 Patient:?Silva COVARRUBIAS :1965???Age:59 Y???Sex:Female Address:[address] [place] [address], [id number] Subjective: * Chief Complaints: * ???n/s's and Cancels * Medical History:? * Surgical History:? * Hospitalization/Major Diagno stic Procedure:? * Medications:? Objective: * Vitals:? * Physical Examination:? Assessment: Plan: * Treatment: * Procedure Codes:? * * Date:?
--- OUTSIDE RECORDS SUMMARY | 2024-11-24 16:36 | XMS_ITS ---
Author Organization [facility] Address [address] [place] [address] Care Team Providers Care Hospitalist Program Director Name Role Phone Lupillo BISHOP, Servando Primary Care Provider Yash Mohr [phone] REASON FOR VISIT Patient presents today for hematemesis Encounters Encounter Location Date Provider Diagnosis [facility] [address] [place] [phone] 10/06/2024 Yash Wilson Plan Of Treatment No Information Progress Notes * PING ROBLESB:[birth year] (59 yo F)Acc No.[id number]:10/06/2024 Progress Notes Patient:?ALESSANDRA ROBLES Provider:?Yash Wilson MD :1965???Age:59 Y???Sex:Female D ate:10/06/2024 Address:[address] [place], [id number] Pcp:Servando Wesley MD Subjective: * Chief Complaints: * ???1. [...] Wilson MD Date:? 025 Generated for Cadeni beth/Maira/eTransmitting on:?11/24/2024 04:35 PM EDT
--- OUTSIDE RECORDS SUMMARY | 2024-11-24 16:37 | XMS_ITS ---
Author Organization [facility] Address [address] [place] [phone] Care Team Providers Care Tea And Spice Supervisor Name Role Phone Lupillo BISHOP, Servando Primary Care Provider Yash Mohr [phone] REASON FOR VISIT Patient presents today for HEMATEMESIS Medications Medication SIG (Take, Route, Fr equency, Duration) Notes Start Date End Date Status Multivitamin Adults - as directed Orally once a day Active Methadone HCl 10 MG 12 mg Orally Once a day Active Aspir-81 Active Ibuprofen Active Encounters Encounter Location Date Provider Diagnosis [facility] [address] [place] [phone] 05/27/2024 Yash Wilson Plan Of Treatment No Information Progress Notes * PING ROBLESB:[birth year] (59 yo F)Acc No.[id number]:05/27/2024 Progress Notes Patient:?ALESSANDRA ROBLES Provider:?Yash Wilson MD :1965???Age:59 Y???Sex:Female D ate:05/27/2024 Address:[address] [facility] [address] [place], [phone] Pcp:Servando Wesley MD Subjective: * Chief Complaints: [...] MD Date:? 024 Generated for Emir campos/Maira/Benito on:?11/24/2024 04:36 PM EDT
== END 2024-11-24 15:38 | disposition home or self-care (01) ==
LOC: HO.HMGCX 15:37
PROVIDERS: PCP Internal Medicine; Visit Provider Internal Medicine
DX: R60.0 Localized edema (principal)
CPT/HCPCS: 93970

== ENCOUNTER → 2024-11-24 15:39 | Outpatient (BNV) | payer OTHER, SELFPAY | PROVIDERS: PCP Internal Medicine; Visit Provider Radiology Diagnostic Radiology | DX: R22.43 Localized swelling, mass and lump, lower limb, bilateral (principal) | CPT/HCPCS: 93970 ==